=== PATIENT | male | born 1940 | race Caucasian/White ===

== ENCOUNTER → 2018-02-15 13:00 | Outpatient (REF) | payer MEDICARE, SELFPAY | LOC: LAB 13:00 | PROVIDERS: Visit Provider Nurse Practitioner Family | DX: J86.9 Pyothorax without fistula (principal) | CPT/HCPCS: 87070; 87077; 87186; 87205 ==

== ENCOUNTER → 2018-09-23 12:20 | Outpatient (CLI) | payer MEDICARE, SELFPAY ==
[2018-09-23 12:55] LABS: Basophils % 0.3 % (0.1-2.0); Eosinophils # 0.4 K/mm3 (0.0-0.4); Eosinophils % 3.8 % (0.1-12.0); Hematocrit 44.9 % (42.0-52.0); Hemoglobin 14.8 g/dL (14.1-18.0); Lymphocytes % 19.1 % (10-50); Mean Corpuscular Hemoglobin 32.1 pg (27.0-31.2); Mean Corpuscular Volume 97.2 fl (80-94); Mean Platelet Volume 7.3 fl (7.4-10.4); Monocytes # 0.4 K/mm3 (0.1-1.0); Monocytes % 4.3 % (1.7-9.3); Neutrophils # 7.4 K/mm3 (1.8-7.8); Neutrophils % 72.4 % (37.0-80.0); Platelet Count 370 K/mm3 (142-424); Red Blood Count 4.62 M/mm3 (4.60-6.20); Red Cell Distribution Width 14.7 % (11.5-17.5); White Blood Count 10.2 K/mm3 (4.8-10.8)
[2018-09-23 14:15] LABS: Erythrocyte Sedimentation Rate 14 mm/hr (0-20)
[2018-09-23 14:35] LABS: Alanine Aminotransferase 21 U/L (12-78); Albumin Level 3.4 gm/dL (3.4-5.0); Albumin/Globulin Ratio 0.9 (1.1-1.8); Alkaline Phosphatase 78 U/L (46-116); Anion Gap 14.9 mEq/L (5-15); Aspartate Amino Transferase 9 U/L (15-37); Bilirubin,Total 0.6 mg/dL (0.2-1.0); Blood Urea Nitrogen 15 mg/dL (7-18); Calcium 8.6 mg/dL (8.5-10.1); Carbon Dioxide 27 mmol/L (21.0-32.0); Chloride 103 mmol/L (98-107); Creatinine,Serum 0.85 mg/dL (0.70-1.30); Estimated Glomerular Filt Rate 87 ml/min (>60); Free T4 (Free Thyroxine) 0.82 ng/dl (0.76-1.46); GFR (African American) 105 ML/MIN (>60); Glucose 89 mg/dL (74-106); Potassium 3.9 mmoL/L (3.5-5.1); Sodium 141 mmol/L (136-145); Thyroid Stimulating Hormone 3.95 uIU/ml (0.358-3.740); Total Protein,Serum 7.4 gm/dL (6.4-8.2)
[2018-09-23 14:39] LABS: C-Reactive Protein < 0.2 mg/L (0.0-0.9)
[2018-09-24 13:11] LABS: Anti-Centromere B Antibodies <0.2 AI (0.0-0.9); Anti-Jo-1 <0.2 AI (0.0-0.9); Anti-Smith Antibody <0.2 AI (0.0-0.9); Antichromatin Antibodies <0.2 AI (0.0-0.9); Antiscleroderma-70 Antibodies 0.3 AI (0.0-0.9); RNP Antibodies <0.2 AI (0.0-0.9); Sjogren's Anti-SS-A <0.2 AI (0.0-0.9); Sjogren's Anti-SS-B <0.2 AI (0.0-0.9)
[2018-09-25 06:56] LABS: Anti-DNA (DS) Ab Qn <1 IU/mL (0-9); RA Latex Turbid. <10.0 IU/mL (0.0-13.9); Vitamin D 25 Hydroxy 43.9 ng/mL (30.0-100.0)
[2018-09-25 07:21] LABS: PTT-LA 47.6 sec (0.0-51.9); dRVVT 52.5 sec (0.0-47.0); dRVVT Mix 43.9 sec (0.0-47.0)
[2018-09-25 12:43] LABS: Lupus Reflex Interpretation Comment: (.)
[2018-09-26 08:17] LABS: Anti-Cyclic Citrullinated Pept 6 units (0-19)
== END ==
PROVIDERS: Visit Provider Nurse Practitioner Family
DX: R53.83 Other fatigue (principal); M25.50 Pain in unspecified joint; G62.9 Polyneuropathy, unspecified
CPT/HCPCS: 36415; 80053; 82652; 84439; 84443; 85025; 85613; 85651; 86140; 86200; 86225; 86235; 86431

== ENCOUNTER → 2018-10-14 11:15 | Outpatient (CLI) | payer MEDICARE, SELFPAY ==
--- NOTE | 2018-10-14 11:23 | XR_ITS ---
XR hand RT min 3V HISTORY: ITS.REASON: pain ORDERING PHYSICIAN: Jackson Robles MD PATIENT AGE: 77 years COMPARISON: None FINDINGS: No fracture or dislocation of the hand. The distal radial and ulnar fractures are noted as described in the wrist report IMPRESSION: Negative right hand
--- NOTE | 2018-10-14 11:43 | XR_ITS ---
XR wrist RT min 3V HISTORY posttraumatic pain ITS.REASON: pain ORDERING PHYSICIAN: Jackson Robles MD PATIENT AGE: 77 years Comparison: None FINDINGS: Comminuted impacted fracture present involving the distal radius transverse in nature with mild dorsal displacement and dorsal angulation of the distal fracture fragment. A splintered fragment is noted dorsally slightly displaced and dorsally angulated. There is nondisplaced fracture at the base of the ulnar styloid. IMPRESSION: Comminuted impacted distal radial fracture with mild dorsal angulation and dorsal displacement with associated nondisplaced fracture of the base of the ulnar styloid
== END ==
PROVIDERS: PCP Emergency Medicine; Visit Provider Emergency Medicine
DX: M79.601 Pain in right arm (principal)
CPT/HCPCS: 73110; 73130

== ENCOUNTER 2018-10-22 10:56 | Observation (INO) | payer MEDICARE, SELFPAY ==
[2018-10-22] VITALS (11 sets, daily range): BP systolic 113–187; BP diastolic 49–86; PULSE 75–102; RESP 16–20; TEMP 36.5–37.1; O2SAT 96–99; BMI 30.5; BMI 35.6; BMI 28.0
--- NOTE | 2018-10-22 11:06 | XR_ITS ---
XR chest portable HISTORY: Cough and congestion ITS.REASON: R/O pneumonia ORDERING PHYSICIAN: Tommy Bhakta MD PATIENT AGE: 77 years COMPARISON: 05/03/2015 FINDINGS: Normal heart size. The right hilum is prominent nonspecific and may be better evaluated with upright PA and lateral chest. No lobar consolidation or collapse. There are severe right subacromial stenosis consistent with torn right rotator cuff. IMPRESSION: No acute finding, see above for detail
--- NOTE | 2018-10-22 11:09 | HMH.EDGENADL ---
ED Disposition Clinical Impression: Chest pain Qualifiers: Chest pain type: precordial pain Qualified Code(s): R07.2 - Precordial pain Disposition: Admitted as Observation Condition on Discharge: Fair - Critical Care Critical Care Time: No Attestation: On , the high probability of a clinically significant, sudden or life threatening deterioration of the following system(s) required my full and direct attention, intervention and personal management. The time I documented below is in addition to time spent performing reported procedures but includes the following listed in this critical care notation. Medical Decision Making - [place] Inquiry Pt receiving controlled substance: No Vital Signs: 10/22/18 10:57 10/22/18 11:45 Pulse Rate [Right Brachial] 92 H 102 H Respiratory Rate 18 Blood Pressure [Right Arm] 113/62 133/49 L Blood Pressure Mean [Right Arm] 79 77 Blood Pressure Source [Right Arm] Automatic Cuff Automatic Cuff Blood Pressure Position [Right Arm] Supine Supine 02 Sat by Pulse Oximetry 98 98 Oxygen Delivery Method Room Air Room Air - Lab Data Lab Results 10/22/18 11:00: WBC 11.4 H, RBC 3.60 L, Hgb 12.0 L, Hct 36.5 L, MCV 101.4 H, MCH 33.3 H, MCHC 32.9, RDW 17.5, Plt Count 591 H, MPV 7.4, Neut % (Auto) 74.1, Lymph % (Auto) 18.1, Avery % (Auto) 4.6, Eos % (Auto) 2.9, Baso % (Auto) 0.3, Neut # (Auto) 8.5 H, Lymph # (Auto) 2.1, Avery # (Auto) 0.5, Eos # (Auto) 0.3, Baso # (Auto) 0.0 10/22/18 11:00: Sodium 140, Potassium 3.0 L, Chloride 107, Carbon Dioxide 21, Anion Gap 15.0, BUN 23 H, Creatinine 0.99, Estimated Creat Clear 77, Estimated GFR 73, Est GFR ( Amer) 88, Glucose 139 H, Calcium 8.8, Total Bilirubin 0.4, AST 12 L, ALT 36, Alkaline Phosphatase 75, Total Protein 6.6, Albumin 2.7 L, Globulin 3.9 H, Albumin/Globulin Ratio 0.7 L 10/22/18 11:00: Magnesium 1.4, Plasma/Serum Alcohol 0 10/22/18 11:00: Troponin I 0.02 10/22/18 11:00: PT 11.9 H, INR 1.15 H, APTT 29.2 Result diagrams: 10/22/18 11:00 10/22/18 11:00 Orders (Tests/Meds): ED MEDICATIONS Discontinued Medications Generic Name Dose Route Start Last Admin Trade Name Freq PRN Reason Stop Dose Admin Aspirin 324 mg 10/22/18 11:28 10/22/18 12:02 Aspirin 81mg Chewable Tablet PO 10/22/18 11:29 324 mg ONCE ONE Administration Pantoprazole Sodium 40 mg 10/22/18 21:00 Protonix 40mg Vial IV 11/21/18 20:59 BID RENARD Pantoprazole Sodium 40 mg 10/22/18 11:37 10/22/18 12:02 Protonix 40mg Vial IV 10/22/18 11:38 40 mg ONCE ONE Administration Potassium Chloride 40 meq 10/22/18 11:41 10/22/18 12:16 Klor-Con 20meq Tablet PO 10/22/18 11:42 40 meq ONCE ONE Administration Sodium Chloride 8 ml 10/22/18 11:37 10/22/18 12:11 Saline Flush 10ml Syringe IV 10/22/18 11:38 8 ml ONCE ONE Administration ORDERS Category Date Time Status Consult to Cardiology [CONS] Routine Cons 10/22/18 11:28 Active CXR --portable [XR chest portable] Stat Exams 10/22/18 11:06 Taken Troponin I Q3H Lab 10/22/18 14:30 Ordered Troponin I Q3H Lab 10/22/18 17:30 Ordered - Radiology Data #1 Image(s): Chest Image Reviewed: Yes I reviewed the patient's radiology image blunting R CPA - ECG Data Tracing #1 EKG interpreted by Tommy Bhakta MD: Rhythm: sinus Rate: 95 [place]: normal Ectopy: Premature atrial contractions Conduction: normal ST Segment Changes: none T Wave Changes: none Q Waves: none LVH with repolarization abnormality - Physician Consults Physician Consulted: DUTCH Liu, for Dr. Bower Time: 12:00 Reason -: Cardiology Eval/Care Comment/Response: They will follow. Recommend PPI. Likely stress test tomorrow. Additional Consult: Margaret Time: 12:12 Reason -: Admission Comment/Response: Agrees to admit the patient to the hospital. We discussed the patient's clinical information, including history, exam, laboratory and radiology results and ED course. Per hospital proce
[2018-10-22 11:20] LABS: Basophils % 0.3 % (0.1-2.0); Eosinophils # 0.3 K/mm3 (0.0-0.4); Eosinophils % 2.9 % (0.1-12.0); Hematocrit 36.5 % (42.0-52.0); Lymphocytes # 2.1 K/mm3 (0.7-4.5); Lymphocytes % 18.1 % (10-50); Mean Corpuscular HGB Conc 32.9 g/dL (31.8-35.4); Mean Corpuscular Hemoglobin 33.3 pg (27.0-31.2); Mean Corpuscular Volume 101.4 fl (80-94); Mean Platelet Volume 7.4 fl (7.4-10.4); Monocytes # 0.5 K/mm3 (0.1-1.0); Monocytes % 4.6 % (1.7-9.3); Neutrophils # 8.5 K/mm3 (1.8-7.8); Neutrophils % 74.1 % (37.0-80.0); Platelet Count 591 K/mm3 (142-424); Red Cell Distribution Width 17.5 % (11.5-17.5); White Blood Count 11.4 K/mm3 (4.8-10.8)
--- NOTE | 2018-10-22 11:27 | CA_ITS ---
PROCEDURE: 2-D M-mode and color Doppler study INDICATIONS FOR THE TEST: Chest pain X COPD Heart Murmur Tobacco Smoking Palpitations Fatigue SyncopeX Edema Hypertension Diabetes Mellitus Rheumatic Fever SOBXDOEXObesityXHyperlipidemia Family History HD Additional History ETOH ABUSE TDS PATIENT INFORMATION HEIGHT: 70 WEIGHT:201 GENDER: Male B/P:113/62 2-D/M-MODE INTERPRETATION: 2-D MEASUREMENTS OBSERVED VALUES IN CMS Right Ventricular Dimension (RVDd) Interventricular Septum (Thickness)(IVsd) Left Ventricular Internal Dimensions(LVIDd) Left Ventricular Posterior Wall (Thickness)(LVPWd) Aortic Root 3.9 Aortic Cusp Separation 1.0 Left Atrial Dimensions (LAD) 4.4 2D 1. Technically very difficult and poor study. 2. Left atrium is mildly enlarged, left ventricle is normal size, hyperdynamic left ventricular systolic function, visually estimated ejection fraction over 65% with no regional wall motion abnormality in the obtained views. Endocardial surfaces are very poorly visualized. 3. The right-sided chambers are not well visualized. 4. The aortic valve is thickened and calcified, leaflet mobility cannot be assessed from this study. 5. The mitral valve has mitral calcification, which extends into the anterior and posterior mitral leaflet. 6. The pulmonic valve is poorly visualized. 7. No significant pericardial effusion noted. DOPPLER INTERROGATION: Doppler interrogation of the aortic, mitral and tricuspid valve is suboptimal, there appears to be aortic stenosis present which is difficult to ascertain from this study, presence of dynamic obstruction cannot be excluded. If clinically indicated transesophageal echocardiogram is recommended for further evaluation. CONCLUSION: 1. Technically difficult and poor study because of the patient's factor and poor acoustic windows 2. Hyperdynamic left ventricular systolic function in the obtained views. Visually estimated ejection fraction over 65%. Presence of dynamic obstruction cannot be excluded 3. Thickened and calcified aortic valve, the degree of aortic valve stenosis cannot be ascertain from this study. 4. A transesophageal echocardiogram is recommended for further evaluation
[2018-10-22 11:28] LABS: Alanine Aminotransferase 36 U/L (12-78); Albumin Level 2.7 gm/dL (3.4-5.0); Albumin/Globulin Ratio 0.7 (1.1-1.8); Alkaline Phosphatase 75 U/L (46-116); Aspartate Amino Transferase 12 U/L (15-37); Bilirubin,Total 0.4 mg/dL (0.2-1.0); Blood Urea Nitrogen 23 mg/dL (7-18); Calcium 8.8 mg/dL (8.5-10.1); Carbon Dioxide 21 mmol/L (21.0-32.0); Chloride 107 mmol/L (98-107); Creatinine Clearance Estimated 77 mL/min (50-200); Creatinine,Serum 0.99 mg/dL (0.70-1.30); Estimated Glomerular Filt Rate 73 ml/min (>60); GFR (African American) 88 ML/MIN (>60); Globulin 3.9 gm/dl (1.3-3.2); Glucose 139 mg/dL (74-106); Sodium 140 mmol/L (136-145); Total Protein,Serum 6.6 gm/dL (6.4-8.2)
--- NOTE | 2018-10-22 11:30 | PC.NURSE ---
Dr. Bhakta speaking to DUTCH Liu at this time CV lab to come do echo at bedside
[2018-10-22 11:31] LABS: Ethyl Alcohol 0 mg/dL (0-99); Magnesium 1.4 mg/dL (1.4-2.2)
--- NOTE | 2018-10-22 11:35 | PC.NURSE ---
spoke with vika in echo lab
--- NOTE | 2018-10-22 11:44 | PC.NURSE ---
CV lab at bedside
--- NOTE | 2018-10-22 11:49 | PC.NURSE ---
Guille Andrews at bedside
[2018-10-22 11:53] LABS: Activated Partial Thrombo Time 29.2 seconds (23.6-34.0); INR 1.15 (0.9-1.1); Prothrombin Time 11.9 seconds (9.4-11.8)
--- NOTE | 2018-10-22 12:02 | HMH.CNCARD ---
History of Present Illness Consult date: 10/22/18 Requesting physician: Jackson Robles Consult reason: chest pain Chief complaint: chest pain Additional Medical History:: 1. Alcohol abuse, continued 2. Remote history of tobacco use for about 20 years, discontinued in patient's mid 40s 3. Family history of heart disease and a brother who is a diabetic 4. History of surgery on left leg due to spongy bone per brother 5. History of back surgery History of present illness: History obtained from patient and brother. He was upstairs on the first floor here at the hospital waiting for an appointment to get his cast changed on his right arm where he has a wrist fracture when he began complaining of blurry vision, dizziness and a presyncopal feeling, chest pain going into both arms, trouble breathing. Says that his chest pain is gone but he still has a tight feeling in his chest. Denies having this in the past and has no known heart problems. He does not have diabetes, hypertension, or hyperlipidemia. He has not smoked in 60 years. His brother of a heart attack. He is a daily drinker per prior records. However, he states that he last drank 8 or 9 days ago. Brother states that the patient took acetaminophen or ibuprofen this morning for his chronic pain, and says he takes this on a daily basis The above per Dr. Bhakta Patient is a poor and difficult historian. States he is hurting all over at this time. He states he did take 4 or 5 ibuprofen, a couple of Tylenol and sometimes this a.m. without food. States he takes ibuprofen and Tylenol several times per day every day. Cardiology consulted due to chest pain. Initial troponin is pending EKG is sinus with no acute changes Preliminary echocardiogram shows preserved ejection fraction with evidence of left ventricular hypertrophy. The patient's brother is concerned that he is no longer able to take care of him and feels that the brother is unable to take care of himself adequately at home. [facility] History *Have you ever received a pneumonia vaccine?: No *Have you received a flu vaccine this season?: No Other Surgeries: Yes: Other Amputation: No Fractures: No - *Social History Smoking Status: Never smoker Alcohol Intake: current Alcohol Intake Frequency:: 3 or more drinks per day Substance Use Type: denies use *Occupational Status:: retired Housing: house Family Hx:: No significant family history Meds Home Medications Medication Instructions Recorded Confirmed Type acetaminophen 300 mg-codeine 30 mg 1 tab PO TID PRN #15 tab 10/14/18 Rx tablet acetaminophen ER 650 mg 650 mg PO Q12H PRN 10/17/18 10/17/18 History tablet,extended release Allergies Allergy/AdvReac Type Severity Reaction Status Date / Time No Known Drug Intolerances Allergy Unknown NA Verified 10/22/18 11:02 Review of Systems - *Cardiovascular Reports chest pain, Reports shortness of breath with activity - *Respiratory Reports cough, Reports shortness of breath with activity, Denies pain with cough - *Gastrointestinal Denies abdominal pain, Denies incontinent of stools, Denies bright, red blood in stools - *Genitourinary Denies painful urination, Denies blood in urine - *Musculoskeletal Reports joint pain, Reports back pain Exam Vital signs and Labs for Last 24 Hours: Pulse Resp BP Pulse Ox 102 H 18 133/49 L 98 10/22/18 11:45 10/22/18 10:57 10/22/18 11:45 10/22/18 11:45 Laboratory Results - last 24 hr 10/22/18 11:00: WBC 11.4 H, RBC 3.60 L, Hgb 12.0 L, Hct 36.5 L, MCV 101.4 H, MCH 33.3 H, MCHC 32.9, RDW 17.5, Plt Count 591 H, MPV 7.4, Neut % (Auto) 74.1, Lymph % (Auto) 18.1, [place] % (Auto) 4.6, Eos % (Auto) 2.9, Baso % (Auto) 0.3, Neut # (Auto) 8.5 H, Lymph # (Auto) 2.1, [place] # (Auto) 0.5, Eos # (Auto) 0.3, Baso # (Auto) 0.0 10/22/18 11:00: Sodium 140, Potassium 3.0 L, Chloride 107, Carbon Dioxide 21, Anion Gap 15.0, BUN 23 H, Creatinine 0.99, Estimated Creat Cl
[2018-10-22 12:16] LABS: Troponin I 0.02 ng/ml (0.00-0.06)
--- NOTE | 2018-10-22 15:02 | HMH.PHAVTE ---
[facility] Pharmacy VTE Monitoring - Patient Demographics Admission date: 10/22/18 Report Date: 10/22/18 Time: 15:02 Allergies/Adverse Reactions: Patient Allergies No Known Drug Intolerances Allergy (Unknown, Verified 10/22/18 11:02) NA Height: 1.73 m Weight: 106.226 kg Patient Problems: Current Active Problems (Updated 10/22/18 @ 12:13 by Tommy Bhakta MD) Chest pain (Acute) Near syncope (Acute) Alcohol abuse (Acute) Hypokalemia (Acute) Anemia (Acute) - VTE Risk Labs: VTE Related Lab Results Hgb 12.0 g/dL (14.1-18.0) L 10/22/18 11:00 Hct 36.5 % (42.0-52.0) L 10/22/18 11:00 Plt Count 591 K/mm3 (142-424) H 10/22/18 11:00 PT 11.9 seconds (9.4-11.8) H 10/22/18 11:00 INR 1.15 (0.9-1.1) H 10/22/18 11:00 APTT 29.2 seconds (23.6-34.0) 10/22/18 11:00 BUN 23 mg/dL (7-18) H 10/22/18 11:00 Creatinine 0.99 mg/dL (0.70-1.30) 10/22/18 11:00 Estimated Creat Clear 77 mL/min (50-200) 10/22/18 11:00 Clinical Trial Participant: No - Prophylaxis Types of VTE Prophylaxis: TEDS Knee High
--- NOTE | 2018-10-22 15:23 | PC.NURSE ---
Pt arrived to unit at 1450. Pt is DANNY, brother left for an appointment. Pt would not answer questions, upset with blood drawing process, and cursing at staff. Pt refused for clothes to be changed into gown. Refused INDER's. Call light within reach, will continue to observe.
--- NOTE | 2018-10-22 16:02 | PC.NURSE ---
Pt states he had an alcoholic beverage in the last 8-9 days, maybe last . Denies substance abuse. Stated he fell and broke his wrist. Also stated he only takes an ibuprofren and acetaminophen daily.
[2018-10-22 16:10] LABS: Troponin I 0.02 ng/ml (0.00-0.06)
[2018-10-22 18:08] LABS: Troponin I 0.03 ng/ml (0.00-0.06)
--- NOTE | 2018-10-22 20:10 | HMH.HP ---
*Admission Date: 10/22/18 *Chief complaint: chest pain *History of present illness: this pt with chest tightness tory obtained from patient and brother. He was upstairs on the first floor here at the hospital waiting for an appointment to get his cast changed on his right arm where he has a wrist fracture when he began complaining of blurry vision, dizziness and a presyncopal feeling, chest pain going into both arms, trouble breathing. Says that his chest pain is gone but he still has a tight feeling in his chest. Denies having this in the past and has no known heart problems. He does not have diabetes, hypertension, or hyperlipidemia. He has not smoked in 60 years. His brother of a heart attack. He is a daily drinker per prior records. However, he states that he last drank 8 or 9 days ago. Brother states that the patient took acetaminophen or ibuprofen this morning for his chronic pain, and says he takes this on a daily basis. pt was seen by card and admitted for [facility] History I have reviewed the patient's past medical history: Yes *Have you ever received a pneumonia vaccine?: No *Have you received a flu vaccine this season?: No Other Surgeries: Yes: Other Amputation: No Fractures: No - *Social History Smoking Status: Never smoker Alcohol Intake: current Alcohol Intake Frequency:: 3 or more drinks per day Substance Use Type: denies use *Occupational Status:: retired Housing: house *Travel in the last 8 weeks: None - Psychiatric History Expresses thoughts of harming self/others: None Suicide Plan Description: No Plan Family Hx:: No significant family history Review of Systems - Review of Systems Review of systems:: pertinent systems reviewed and negative unless documented below - Constitutional Denies fever(s) - Eyes Denies change in vision - ENT Denies sore throat - *Cardiovascular Reports chest pain at rest, Reports shortness of breath - *Respiratory Denies cough - *Gastrointestinal Reports abdominal pain, Reports nausea, Denies black, tarry stools, Denies vomiting - *Genitourinary Denies blood in urine - *Musculoskeletal Denies joint pain - Integumentary/Breasts Denies rash - *Neurologic Denies seizure-like activity - Psychiatric Denies anxiety Meds Home Medications Medication Instructions Recorded Confirmed Type acetaminophen ER 650 mg 650 mg PO Q12H PRN 10/17/18 10/22/18 History tablet,extended release Acetaminophen with Codeine 1 tab PO TID PRN 10/22/18 10/22/18 History [Acetaminophen-Cod #2 Tablet] Allergies Allergy/AdvReac Type Severity Reaction Status Date / Time No Known Drug Intolerances Allergy Unknown NA Verified 10/22/18 11:02 Exam Vital signs and Labs for Last 24 Hours: Temp Pulse Resp BP Pulse Ox 97.7 F 80 18 117/77 99 10/22/18 15:40 10/22/18 16:00 10/22/18 15:40 10/22/18 15:40 10/22/18 15:40 Laboratory Results - last 24 hr 10/22/18 11:00: WBC 11.4 H, RBC 3.60 L, Hgb 12.0 L, Hct 36.5 L, MCV 101.4 H, MCH 33.3 H, MCHC 32.9, RDW 17.5, Plt Count 591 H, MPV 7.4, Neut % (Auto) 74.1, Lymph % (Auto) 18.1, [place] % (Auto) 4.6, Eos % (Auto) 2.9, Baso % (Auto) 0.3, Neut # (Auto) 8.5 H, Lymph # (Auto) 2.1, [place] # (Auto) 0.5, Eos # (Auto) 0.3, Baso # (Auto) 0.0 10/22/18 11:00: Sodium 140, Potassium 3.0 L, Chloride 107, Carbon Dioxide 21, Anion Gap 15.0, BUN 23 H, Creatinine 0.99, Estimated Creat Clear 77, Estimated GFR 73, Est GFR ( Amer) 88, Glucose 139 H, Calcium 8.8, Total Bilirubin 0.4, AST 12 L, ALT 36, Alkaline Phosphatase 75, Total Protein 6.6, Albumin 2.7 L, Globulin 3.9 H, Albumin/Globulin Ratio 0.7 L 10/22/18 11:00: Magnesium 1.4, Plasma/Serum Alcohol 0 10/22/18 11:00: Troponin I 0.02 10/22/18 11:00: PT 11.9 H, INR 1.15 H, APTT 29.2 10/22/18 15:30: Troponin I 0.02 10/22/18 17:20: Troponin I 0.03 I & O for Last 24 hours: Intake & Output 10/20/18 10/21/18 10/22/18 10/23/18 11:59 11:59 11:59 11:59 Intake Tota
[2018-10-23] VITALS: PULSE 90
[2018-10-23 04:00] VITALS: BP 147/67; PULSE 80; PULSE 91; RESP 18; TEMP 36.8; O2SAT 96
[2018-10-23 04:23] VITALS: BMI 40.9
--- NOTE | 2018-10-23 04:29 | PC.NURSE ---
PT HAS MOSTLY SLEPT THIS SHIFT. AT AROUND MIDNIGHT PT VERBALIZED PAIN EVERYWHERE . GIVEN PAIN MED-SEE AUG. PT REQUIRED ONE ASSIST AND USE OF HIS WALKER TO BATHROOM. PT NPO FOR STRESS TEST TODAY.
[2018-10-23 08:00] VITALS: BP 141/78; PULSE 110; PULSE 95; RESP 18; TEMP 36.6; O2SAT 95
--- NOTE | 2018-10-23 08:42 | NM_ITS ---
NM adam perf SPECT rest str CLINICAL INDICATION: ITS.REASON: chest pain ORDERING PHYSICIAN: Jackson Robles MD PATIENT AGE: 77 years COMPARISON: None DOSE: 10.68 mCi technetium Myoview intravenously at rest followed by 31.6 mCi technetium Myoview following the intravenous ministration of 0.4 mg of Lexiscan. Resting blood pressure is Resting blood pressure. Stress blood pressure Stress blood pressure. FINDINGS: Ejection fraction is calculated to be 85%. No wall motion are not detected. SPECT and polar map images reviewed. No fixed or reversible defects are evident that would indicate infarction or ischemia IMPRESSION: 1. Normal ejection fraction. 2. No fixed or reversible defects. No evidence of ischemia or infarction
--- NOTE | 2018-10-23 10:02 | HMH.PNCARD ---
Subjective Date: 10/23/18 Time: 09:20 Principal diagnosis: pre-syncope Interval history: This is a 77-year-old male who was admitted to the hospital for presyncope, dizziness and chest pain as well as shortness of breath. The patient was in the hospital waiting to get his cast change when he had sudden onset of blurry vision and dizziness. The patient felt as if he were going to pass out. He never had a syncopal episode. He did have chest pain in the center of his chest radiating to both arms as well as shortness of breath. The chest pain was a tight sensation in the center of his chest. He does not have a history of coronary artery disease. The patient is scheduled to undergo a Myoview stress test today. This morning he denies any chest pain or pressure. He states that he is still having some shortness of breath with exertion and still some dizziness as well when he is exerting himself. He denies any fever or chills. He denies any nausea, vomiting, diarrhea, PND or orthopnea. The patient's echocardiogram showed: CONCLUSION: 1. Technically difficult and poor study because of the patient's factor and poor acoustic windows 2. Hyperdynamic left ventricular systolic function in the obtained views. Visually estimated ejection fraction over 65%. Presence of dynamic obstruction cannot be excluded 3. Thickened and calcified aortic valve, the degree of aortic valve stenosis cannot be ascertain from this study. 4. A transesophageal echocardiogram is recommended for further evaluation Exam Vital signs and Labs for Last 24 Hours: Temp Pulse Resp BP Pulse Ox 97.9 F 95 H 18 141/78 H 95 10/23/18 08:00 10/23/18 08:00 10/23/18 08:00 10/23/18 08:00 10/23/18 08:00 Laboratory Results - last 24 hr 10/22/18 11:00: WBC 11.4 H, RBC 3.60 L, Hgb 12.0 L, Hct 36.5 L, MCV 101.4 H, MCH 33.3 H, MCHC 32.9, RDW 17.5, Plt Count 591 H, MPV 7.4, Neut % (Auto) 74.1, Lymph % (Auto) 18.1, [place] % (Auto) 4.6, Eos % (Auto) 2.9, Baso % (Auto) 0.3, Neut # (Auto) 8.5 H, Lymph # (Auto) 2.1, [place] # (Auto) 0.5, Eos # (Auto) 0.3, Baso # (Auto) 0.0 10/22/18 11:00: Sodium 140, Potassium 3.0 L, Chloride 107, Carbon Dioxide 21, Anion Gap 15.0, BUN 23 H, Creatinine 0.99, Estimated Creat Clear 77, Estimated GFR 73, Est GFR ( Amer) 88, Glucose 139 H, Calcium 8.8, Total Bilirubin 0.4, AST 12 L, ALT 36, Alkaline Phosphatase 75, Total Protein 6.6, Albumin 2.7 L, Globulin 3.9 H, Albumin/Globulin Ratio 0.7 L 10/22/18 11:00: Magnesium 1.4, Plasma/Serum Alcohol 0 10/22/18 11:00: Troponin I 0.02 10/22/18 11:00: PT 11.9 H, INR 1.15 H, APTT 29.2 10/22/18 15:30: Troponin I 0.02 10/22/18 17:20: Troponin I 0.03 I & O for Last 24 hours: Intake & Output 10/20/18 10/21/18 10/22/18 10/23/18 23:59 23:59 23:59 23:59 Intake Total 0 / 0 656 / 656 Balance 0 / 0 656 / 656 Weight 158 lb 231 lb 6 oz Narrative: The patient's telemetry strip shows sinus rhythm with a rate of 96. - *Routine HEENT Exam Head: Present: normocephalic, atraumatic Eye: Present: EOMI, PERRL ENT: Present: mucous membranes moist - *Routine Neck Exam Present: supple, full ROM. Absent: JVD, carotid bruit, lymphadenopathy - *Routine Respiratory Exam Present: CTA bilaterally - *Routine Cardiovascular Exam Present: RRR, Normal S1, Normal S2. Absent: murmur, gallop - *Routine Abdominal Exam Present: soft, normoactive bowel sounds. Absent: tenderness, distended - *Routine Extremities Exam Present: full ROM (Except right upper extremity which is in a cast), pulses intact, normal capillary refill. Absent: cyanosis, clubbing, edema - *Routine Skin Exam Present: intact, warm. Absent: erythema, rash - *Routine Neurological Exam Present: alert, oriented X3, CN II-XII intact. Absent: sensory deficit, motor deficit - Detailed Eye Exam Eyelids: Left normal inspection Progress Note: A&P (1) Chest pain Status: Acute Current Visit: Yes (2) Near syncope Status: Acute Current Visit
--- NOTE | 2018-10-23 10:05 | P.PN_ITS ---
Subjective Date: 10/23/18 Time: 09:20 Principal diagnosis: pre-syncope Interval history: This is a 77-year-old male who was admitted to the hospital for presyncope, dizziness and chest pain as well as shortness of breath. The patient was in the hospital waiting to get his cast change when he had sudden onset of blurry vision and dizziness. The patient felt as if he were going to pass out. He never had a syncopal episode. He did have chest pain in the center of his chest radiating to both arms as well as shortness of breath. The chest pain was a tight sensation in the center of his chest. He does not have a history of coronary artery disease. The patient is scheduled to undergo a Myoview stress test today. This morning he denies any chest pain or pressure. He states that he is still having some shortness of breath with exertion and still some dizziness as well when he is exerting himself. He denies any fever or chills. He denies any nausea, vomiting, diarrhea, PND or orthopnea. The patient's echocardiogram showed: CONCLUSION: 1. Technically difficult and poor study because of the patient's factor and poor acoustic windows 2. Hyperdynamic left ventricular systolic function in the obtained views. Visually estimated ejection fraction over 65%. Presence of dynamic obstruction cannot be excluded 3. Thickened and calcified aortic valve, the degree of aortic valve stenosis cannot be ascertain from this study. 4. A transesophageal echocardiogram is recommended for further evaluation Exam Vital signs and Labs for Last 24 Hours: Temp Pulse Resp BP Pulse Ox 97.9 F 95 H 18 141/78 H 95 10/23/18 08:00 10/23/18 08:00 10/23/18 08:00 10/23/18 08:00 10/23/18 08:00 Laboratory Results - last 24 hr 10/22/18 11:00: WBC 11.4 H, RBC 3.60 L, Hgb 12.0 L, Hct 36.5 L, MCV 101.4 H, MCH 33.3 H, MCHC 32.9, RDW 17.5, Plt Count 591 H, MPV 7.4, Neut % (Auto) 74.1, Lymph % (Auto) 18.1, [place] % (Auto) 4.6, Eos % (Auto) 2.9, Baso % (Auto) 0.3, Neut # (Auto) 8.5 H, Lymph # (Auto) 2.1, [place] # (Auto) 0.5, Eos # (Auto) 0.3, Baso # (Auto) 0.0 10/22/18 11:00: Sodium 140, Potassium 3.0 L, Chloride 107, Carbon Dioxide 21, Anion Gap 15.0, BUN 23 H, Creatinine 0.99, Estimated Creat Clear 77, Estimated GFR 73, Est GFR ( Amer) 88, Glucose 139 H, Calcium 8.8, Total Bilirubin 0.4, AST 12 L, ALT 36, Alkaline Phosphatase 75, Total Protein 6.6, Albumin 2.7 L , Globulin 3.9 H, Albumin/Globulin Ratio 0.7 L 10/22/18 11:00: Magnesium 1.4, Plasma/Serum Alcohol 0 10/22/18 11:00: Troponin I 0.02 10/22/18 11:00: PT 11.9 H, INR 1.15 H, APTT 29.2 10/22/18 15:30: Troponin I 0.02 10/22/18 17:20: Troponin I 0.03 I & O for Last 24 hours: Intake & Output 10/20/18 10/21/18 10/22/18 10/23/18 23:59 23:59 23:59 23:59 Intake Total 0 / 0 656 / 656 Balance 0 / 0 656 / 656 Weight 158 lb 231 lb 6 oz Narrative: The patient's telemetry strip shows sinus rhythm with a rate of 96. - *Routine HEENT Exam Head: Present: normocephalic, atraumatic Eye: Present: EOMI, PERRL ENT: Present: mucous membranes moist - *Routine Neck Exam Present: supple, full ROM. Absent: JVD, carotid bruit, lymphadenopathy - *Routine Respiratory Exam Present: CTA bilaterally - *Routine Cardiovascular Exam Present: RRR, Normal S1, Normal S2. Absent: murmur, gallop - *Routine Abdominal Exam Present: soft, normoactive bowel sounds. Absent: tenderness, distended - *Routine Extremities Exam Pr
--- NOTE | 2018-10-23 10:33 | HMH.PTEV ---
Physical Therapy Evaluation Rehab PT IP Evaluation Start: 10/23/18 08:43 Freq: ONCE Status: Active Protocol: Document 10/23/18 09:45 PHORNE (Rec: 10/23/18 10:33 PHORNE [id number]) Subjective/History History History 77 yowm adm to [facility] afetr pre- syncopal/ chest pain event while waiting to have the cast on his right arm changed. Subjective Subjective Pt currently reports no c/o this am. Rehab PT IP Eval Objective Appearance Patient Behavior Appropriate Patient Orientation Person,Place,Time Difficulty following instructions none Speech Pattern Clear Ambulation Patient Able to Ambulate Yes Ambulation Observation IP General Gait Pattern Observation Wide Based Gait Ambulation Distance (feet) 30 Ambulation Assistive Device Rolling Walker Balance Ability to Arise Able, w/o using arms Sitting Balance Steady, safe Standing Balance Steady, wide stance Dynamic Sitting Balance Ability Good Dynamic Standing Balance Ability Fair Transfers Bed Transfer Ability Supervision/Stand by Chair Transfer Ability Supervision/Stand by Sit to Stand Bed Transfer Ability Supervision/Stand by Sit to Stand Chair Transfer Ability Supervision/Stand by ROM All Extremities PT ROM Status WFL Abnormal ROM Comment except right UE in cast MMT All Extremities PT MMT WFL Abnormal MMT Grade except right UE NT due to cast , shld 3/5 Rehab PT IP prob,goals,plan Problems Date of Evaluation: 10/23/18 Discharge Plan PT Discharge Plan Pt appears to be at baseline for all mobility currently. Mildly impulsive with transfers and ambulation, but again this is most likely baseline activity. He reports having a ramp to enter his home and has a rolator at bedside that he normally uses for ambulation. He is appropriate to return home once medically stable. G -code Required Yes Eval Complexity Eval Charge Codes 19747 - Moderate Complexity G Codes PT Current Status Mobility PT Current Status Modifier CJ-At least 20% but less than 40% impaired, limited or restricted PT Goal Status Mobility
--- NOTE | 2018-10-23 11:03 | HMH.OTEV ---
OT Inpatient Evaluation Rehab OT IP Evaluation Start: 10/23/18 08:43 Freq: ONCE Status: Complete Protocol: Document 10/23/18 10:52 [facility] (Rec: 10/23/18 11:[address] [facility] [id number]) Rehab OT IP Assessment Subjective History Pt was oriented x 2 upon arrival. Pt agreeable to engage in therapy evaluation. Pt reports prior to being admitted to hospital he lived at home alone. Pt claims he was independent with dressing, showering and feeding. Pt also claims he was independent with all IADL's. Pt does use a rollator during transfers. Pt is a bit impulsive when asked to engage in evaluation. Subjective I can do everything Objective Upper Extremity Gross ROM Min Limitation <25% Shoulder ROM Limitations Muscle Weakness Elbow ROM Limitations Muscle Weakness Wrist Limitations of Range of Motion Muscle Weakness Bed Mobility bed mobility-scooting,bed mobility - supine/sit,bed mobility - rolling Assist Level Supervision/Stand by Transfer Training Sit/Stand Transfer Assist Level Supervision/Stand by Chair Transfer Ability Supervision/Stand by Chair Transfer Technique Sit to/from Ambulatory Chair Transfer Assistive Devices Rolling Walker Self care skills fully toilet trained,uses utensils to feed self Feeding Ability Independent Lower Body Dressing Ability Assistance X1 Upper Body Dressing Ability Standby Assistance Performing Toilet Hygiene Ability Standby Assistance Overall Commode/Toilet Transfer Ability Standby Assistance Commode/Toilet Transfer Technique Sit to/from Ambulatory decrease in endurance No Rehab OT IP prob,goals,plan Problems Date of Evaluation: 10/23/18 Other OT problems Pt appears to be at baseline Rehab Potential Rehab Potential Innapropriate for Skilled Therapy Discharge Plan OT Discharge Plan No further tx required at this time. Pt appears to be at baseline. If pt's functional ability declines therapist can re-eval at a later date. Eval Complexity Eval Charge Codes 98332 - Low Complexity G Codes G -code Required Yes OT Current Status S
[2018-10-23 11:09] VITALS: BMI 41.0
[2018-10-23 12:00] VITALS: BP 120/55; PULSE 112; RESP 20; TEMP 37.1; O2SAT 96
--- NOTE | 2018-10-23 12:15 | XR_ITS ---
XR wrist RT 2V HISTORY follow-up fracture ITS.REASON: broken ORDERING PHYSICIAN: Jackson Robles MD PATIENT AGE: 77 years Comparison: 10/14/2018 FINDINGS: A cast has been placed. No significant change in the impacted distal radial fracture with mild foreshortening and mild dorsal angulation of the distal fracture fragment. IMPRESSION: Interval cast placement otherwise no change in the impacted nondisplaced distal radial fracture
--- NOTE | 2018-10-23 13:03 | HMH.ORTHPN ---
Subjective Date: 10/23/18 Time: 12:00 Principal diagnosis: Fracture distal radius, right wrist Interval history: Patient is a 77-year-old patient seen on the floor regarding his right distal radius fracture. He sustained a right distal radius fracture when he passed out and fell at home over 2 weeks ago. I have has seen him in my office about 10 days after the injury and x-ray showed a displaced distal radius fracture along with nondisplaced fracture of the ulnar styloid process. Following detailed discussion with the patient and his brother, he opted for nonsurgical management. He is fully aware of the consequences of malunion of the fracture. He also has significant comorbidities and history of chronic alcoholism. At that time we have applied a sugar tong splint because of significant swelling of his forearm and hand. He was supposed to be following up with me in the office yesterday for application of a short arm cast. However, while waiting to be seen, he had a syncopal attack and was transferred to the ER. From the ER, he was admitted to medical services for further evaluation. Today he is still reporting significant pain around the right wrist. No history of any distal tingling or numbness. PN: Obj Ex Vital signs: Temp Pulse Resp BP Pulse Ox 97.9 F 95 H 18 141/78 H 95 10/23/18 08:00 10/23/18 08:00 10/23/18 08:00 10/23/18 08:00 10/23/18 08:00 Narrative: General appearance: alert, active, awake, no acute distress Cardiovascular: regular rate & rhythm, normal peripheral pulses Respiratory: No respiratory distress noted, speaks in full sentences ABD: soft and non tender Neuro: alert, awake, oriented x 3 Right wrist: On examination out of the splint, the skin is intact There is an mild dinner fork deformity of the distal forearm The swelling of his forearm and hand has significantly improved compared to last week; there is still some mild swelling and ecchymosis around the wrist and distal forearm Diffusely tender over the distal forearm and the wrist joint; nontender over the elbow joint Movements of the wrist and forearm are limited with pain; good range of pain-free elbow movements; good range of finger movements noted Forearm compartments are soft and nontender; no stretch pain or other signs of compartment syndrome noted Neurovascularly intact distally; capillary refill is brisk Sensation intact to light touch throughout. Progress Note: A&P (1) Chest pain Status: Acute Current Visit: Yes (2) Near syncope Status: Acute Current Visit: Yes (3) Alcohol abuse Status: Acute Current Visit: Yes (4) Distal radial fracture Status: Acute Assessment and plan: I have reviewed the clinical findings with the patient. I have again discussed the diagnosis, natural history and management options in detail. Given the fact that patient does not want any surgical intervention and has multiple comorbidities, we have decided to continue nonsurgical management. Today, as the swelling has gone down, I have recommended application of a short arm cast. He wished to proceed. A well-padded and well fitting short arm cast was applied with Ortho-Glass. Appropriate cast care instructions were given. Check x-ray right wrist was ordered after application of cast. I have encouraged patient to elevate the hand, mobilize the fingers and elbow frequently and take simple pain medication as needed. All the questions were answered and patient verbalized a good understanding. Follow-up in my office in 4 weeks time with check x-ray. Please feel free to call our office at [phone] or via the hospital wool hat sanding machine operator [phone] for any orthopaedic questions or concerns. 10/23/2018; 1745 I have reviewed the x-ray of his right wrist after application of the short arm cast. The overall alignment of the displaced distal radius fracture is unchanged from the previous imaging. As patient refused any surgical intervention, the alignm
--- NOTE | 2018-10-23 13:12 | P.PN_ITS ---
Subjective Date: 10/23/18 Time: 12:00 Principal diagnosis: Fracture distal radius, right wrist Interval history: Patient is a 77-year-old patient seen on the floor regarding his right distal radius fracture. He sustained a right distal radius fracture when he passed out and fell at home over 2 weeks ago. I have has seen him in my office about 10 days after the injury and x-ray showed a displaced distal radius fracture along with nondisplaced fracture of the ulnar styloid process. Following detailed discussion with the patient and his brother, he opted for nonsurgical management. He is fully aware of the consequences of malunion of the fracture. He also has significant comorbidities and history of chronic alcoholism. At that time we have applied a sugar tong splint because of significant swelling of his forearm and hand. He was supposed to be following up with me in the office yesterday for application of a short arm cast. However, while waiting to be seen, he had a syncopal attack and was transferred to the ER. From the ER, he was admitted to medical services for further evaluation. Today he is still reporting significant pain around the right wrist. No history of any distal tingling or numbness. PN: Obj Ex Vital signs: Temp Pulse Resp BP Pulse Ox 97.9 F 95 H 18 141/78 H 95 10/23/18 08:00 10/23/18 08:00 10/23/18 08:00 10/23/18 08:00 10/23/18 08:00 Narrative: General appearance: alert, active, awake, no acute distress Cardiovascular: regular rate & rhythm, normal peripheral pulses Respiratory: No respiratory distress noted, speaks in full sentences ABD: soft and non tender Neuro: alert, awake, oriented x 3 Right wrist: On examination out of the splint, the skin is intact There is an mild dinner fork deformity of the distal forearm The swelling of his forearm and hand has significantly improved compared to last week; there is still some mild swelling and ecchymosis around the wrist and distal forearm Diffusely tender over the distal forearm and the wrist joint; nontender over the elbow joint Movements of the wrist and forearm are limited with pain; good range of pain- free elbow movements; good range of finger movements noted Forearm compartments are soft and nontender; no stretch pain or other signs of compartment syndrome noted Neurovascularly intact distally; capillary refill is brisk Sensation intact to light touch throughout. Progress Note: A&P (1) Chest pain Status: Acute Current Visit: Yes (2) Near syncope Status: Acute Current Visit: Yes (3) Alcohol abuse Status: Acute Current Visit: Yes (4) Distal radial fracture Status: Acute Assessment and plan: I have reviewed the clinical findings with the patient. I have again discussed the diagnosis, natural history and management options in detail. Given the fact that patient does not want any surgical intervention and has multiple comorbidities, we have decided to continue nonsurgical management. Today, as the swelling has gone down, I have recommended application of a short arm cast. He wished to proceed. A well-padded and well fitting short arm cast was applied with Ortho-Glass. Appropriate cast care instructions were given. Check x-ray right wrist was ordered after application of cast. I have encouraged patient to elevate the hand, mobilize the fingers and elbow frequently and take simple pain medication as needed. All the questions were answered and patient verbalized a good understanding. Follow-up in my office in 4 weeks time with check x-ray. Please feel free to call our office at [phone]
--- NOTE | 2018-10-23 14:26 | HMH.ACPN2 ---
Internal Medicine - PN: Subj *Date: 10/24/18 *Time: 07:28 Interval history: pt with work up in progress - talked with brother who has concerns about pt living alone Exam Vital signs and Labs for Last 24 Hours: Temp Pulse Resp BP Pulse Ox 98.8 F 112 H 20 120/55 L 96 10/23/18 12:00 10/23/18 12:00 10/23/18 12:00 10/23/18 12:00 10/23/18 12:00 Laboratory Results - last 24 hr 10/22/18 15:30: Troponin I 0.02 10/22/18 17:20: Troponin I 0.03 I & O for Last 24 hours: Intake & Output 10/21/18 10/22/18 10/23/18 10/24/18 11:59 11:59 11:59 11:59 Intake Total 656 / 656 Balance 656 / 656 Weight 201 lb 231 lb 6.002 oz - Constitutional no acute distress, obese - *Routine HEENT Exam Head: Present: normocephalic Eye: Present: EOMI, PERRL ENT: Present: mucous membranes dry - *Routine Neck Exam Absent: JVD - *Routine Respiratory Exam Present: decreased breath sounds - *Routine Cardiovascular Exam Present: RRR, murmur - *Routine Abdominal Exam Present: soft - *Routine Extremities Exam Present: edema - *Routine Skin Exam Present: intact - *Routine Neurological Exam Present: alert, CN II-XII intact - Routine Psychiatric Exam Present: normal affect Assessment and Plan (1) Chest pain Current visit: Yes Status: Acute Qualifiers: Chest pain type: precordial pain Qualified Code(s): R07.2 - Precordial pain Category: Medical Code(s): R07.9 - Chest pain, unspecified (2) Near syncope Current visit: Yes Status: Acute Category: Medical Code(s): R55 - Syncope and collapse (3) Alcohol abuse Current visit: Yes Status: Acute Category: Medical Code(s): F10.10 - Alcohol abuse, uncomplicated (4) Distal radial fracture Current visit: No Status: Acute Qualifiers: Encounter type: initial encounter Fracture type: closed Fracture morphology: other intra-articular Laterality: right Qualified Code(s): S52.571A - Other intraarticular fracture of lower end of right radius, initial encounter for closed fracture Category: Medical Code(s): S52.509A - Unspecified fracture of the lower end of unspecified radius, initial encounter for closed fracture (5) Hypokalemia Current visit: Yes Status: Acute Category: Medical Code(s): E87.6 - Hypokalemia (6) Anemia Current visit: Yes Status: Acute Category: Medical Code(s): D64.9 - Anemia, unspecified (7) Obesity Current visit: Yes Status: Acute Qualifiers: Obesity type: due to excess calories Obesity classification: adult class 3 (BMI >= 40) Serious obesity comorbidity presence: with serious comorbidity Body mass index: BMI 40.0-44.9 Qualified Code(s): E66.01 - Morbid (severe) obesity due to excess calories; Z68.41 - Body mass index (BMI) 40.0-44.9, adult Category: Medical Code(s): E66.9 - Obesity, unspecified (8) Aortic stenosis Current visit: Yes Status: Acute Category: Medical Code(s): I35.0 - Nonrheumatic aortic (valve) stenosis (9) Thrombocytosis Current visit: Yes Status: Acute Category: Medical Code(s): D47.3 - Essential (hemorrhagic) thrombocythemia
--- NOTE | 2018-10-23 15:43 | PC.NURSE ---
COURTESY ROUND; PATIENT IS NPO & TRASH WAS TAKEN OUT
[2018-10-23 16:00] VITALS: BP 156/96; PULSE 80; PULSE 99; RESP 18; TEMP 36.6; O2SAT 99
--- NOTE | 2018-10-23 18:50 | PC.NURSE ---
PLACES A CAST ON PATIENTS RIGHT WRIST TODAY, REFUSED TO LET LAB DRAW BLOOD, STATES WE ARE TRYING TO KILL HIM, ASK FOR PAIN MEDICINE CONTINUOUSLY, CUSSES STAFF, RIPPED HIS IV LINE INTO PIECES, REFUSES TO WEAR HEART MONITOR, REFUSES TO WEAR HOSPITAL GOWN, PATIENT HAD A STRESS TEST TODAY AND IS TO HAVE A PAUL TOMORROW. PATIENT STATES HE DOES NOT DRINK ALCOHOL AND DOESN'T LIKE THE TASTE OF IT, BROTHER STATES DIFFERENTLY . PATIENT STATES HE DOESN'T KNOW WERE THE DOCTOR GOT THAT IDEAL. HE TOLD HIS BROTHER THAT A DOCTOR CAME TO HIS STREET IN AN OLD BLACK CAR AND HE BOUGHT PILLS FROM HIM, AND TOOK THEM. BROTHER TOLD HIM THAT WAS NOT A DOCTOR AND NOT TO DO THAT AGAIN. WILL CONTINUE TO MONITOR.
--- NOTE | 2018-10-23 19:22 | PC.NURSE ---
report given to tiff
[2018-10-23 20:00] VITALS: BP 127/76; PULSE 82; RESP 20; TEMP 36.4; O2SAT 98
[2018-10-23 20:17] LABS: Basophils % 0.1 % (0.1-2.0); Eosinophils # 0.4 K/mm3 (0.0-0.4); Eosinophils % 3.6 % (0.1-12.0); Hematocrit 29.7 % (42.0-52.0); Hemoglobin 9.9 g/dL (14.1-18.0); Lymphocytes # 1.7 K/mm3 (0.7-4.5); Lymphocytes % 15.5 % (10-50); Mean Corpuscular HGB Conc 33.3 g/dL (31.8-35.4); Mean Corpuscular Hemoglobin 33.7 pg (27.0-31.2); Mean Corpuscular Volume 101.1 fl (80-94); Mean Platelet Volume 7.8 fl (7.4-10.4); Monocytes # 0.6 K/mm3 (0.1-1.0); Monocytes % 5.1 % (1.7-9.3); Neutrophils # 8.3 K/mm3 (1.8-7.8); Neutrophils % 75.6 % (37.0-80.0); Platelet Count 372 K/mm3 (142-424); Red Blood Count 2.94 M/mm3 (4.60-6.20); Red Cell Distribution Width 18.1 % (11.5-17.5)
[2018-10-24] VITALS (20 sets, daily range): BP systolic 129–173; BP diastolic 73–95; PULSE 72–110; RESP 16–20; TEMP 36.3–36.9; O2SAT 94–99; BMI 41.1
--- NOTE | 2018-10-24 05:04 | PC.NURSE ---
PT UP ROLLING IN SEATED WALKER AT ONE POINT. PT GIVEN PAIN MED AT MD, EVENTUALLY SLEPT. NPO FOR PROCEDURE TODAY.
--- NOTE | 2018-10-24 06:29 | PC.NURSE ---
ON MAKING ROUNDS FOUND PT TO BE SITTING ON FLOOR BY BED. STATES HE GENTLY SLID OUT OF HIS ROLLING WALKER IN WHICH HE WAS SETTING ON. PT DENIED INJURY. VITALS SIGNS 98.1 P96, O2 SAT 98, B/P 175/79 R 18. THIS OCCURRED AT 0625. AT 0628 LEFT MESSAGE WITH NILSA IN ER TO REPORT TO DR. VEGAS THAT PT FOUND SITTING ON FLOOR.
--- NOTE | 2018-10-24 08:21 | P.PN_ITS ---
Subjective Date: 10/24/18 Time: 08:18 Principal diagnosis: Fracture distal radius, right wrist Interval history: 77 yo WM in chair in NAD. Wants to go home. Stress test showed no ischemia with normal LVEF. Transthoracic echo was poor quality to see valves. PAUL recommended with plans to perform today. Exam Vital signs and Labs for Last 24 Hours: Temp Pulse Resp BP Pulse Ox 98.4 F 80 18 150/75 H 98 10/24/18 04:00 10/24/18 05:21 10/24/18 04:00 10/24/18 04:00 10/24/18 04:00 Laboratory Results - last 24 hr 10/23/18 20:10: WBC 11.0 H, RBC 2.94 L, Hgb 9.9 L, Hct 29.7 L, MCV 101.1 H, MCH 33.7 H, MCHC 33.3, RDW 18.1 H, Plt Count 372 D, MPV 7.8, Neut % (Auto) 75.6, Lymph % (Auto) 15.5, [place] % (Auto) 5.1, Eos % (Auto) 3.6, Baso % (Auto) 0.1, Neut # (Auto) 8.3 H, Lymph # (Auto) 1.7, [place] # (Auto) 0.6, Eos # (Auto) 0.4, Baso # (Auto) 0.0 I & O for Last 24 hours: Intake & Output 10/21/18 10/22/18 10/23/18 10/24/18 11:59 11:59 11:59 11:59 Intake Total 656 / 656 240 / 240 Balance 656 / 656 240 / 240 Weight 201 lb 231 lb 6.002 oz 232 lb 3 oz - *Routine HEENT Exam Head: Present: normocephalic Eye: Present: EOMI, PERRL ENT: Present: mucous membranes moist - *Routine Respiratory Exam Present: CTA bilaterally. Absent: accessory muscle use, rales, rhonchi, wheezes - *Routine Cardiovascular Exam Present: RRR, murmur. Absent: gallop, rubs - *Routine Extremities Exam Absent: edema, calf tenderness - *Routine Neurological Exam Present: alert, oriented X3, moving all extremities Progress Note: A&P (1) Chest pain Status: Acute Current Visit: Yes (2) Near syncope Status: Acute Current Visit: Yes (3) Alcohol abuse Status: Acute Current Visit: Yes (4) Distal radial fracture Status: Acute Current Visit: No (5) Hypokalemia Status: Acute Current Visit: Yes (6) Anemia Status: Acute Current Visit: Yes (7) Obesity Status: Acute Current Visit: Yes (8) Aortic stenosis Status: Acute Current Visit: Yes (9) Thrombocytosis Status: Acute Current Visit: Yes Assessment and Plan for All Diagnoses:: Plan for PAUL today and then likely home this afternoon from cardiology standpoint.
--- NOTE | 2018-10-24 09:05 | HMH.ACPN2 ---
Internal Medicine - PN: Subj *Date: 10/24/18 *Time: 09:06 Interval history: 77-year-old male patient sitting up in chair denies any dizziness or chest pain. Discussed possibly being discharged to an extended care facility and patient is agreeable to this. Explained he will need a PAUL today and after evaluation, we will discuss discharge Exam Vital signs and Labs for Last 24 Hours: Temp Pulse Resp BP Pulse Ox 97.6 F 89 16 158/81 H 98 10/24/18 08:00 10/24/18 08:00 10/24/18 08:00 10/24/18 08:00 10/24/18 08:00 Laboratory Results - last 24 hr 10/23/18 20:10: WBC 11.0 H, RBC 2.94 L, Hgb 9.9 L, Hct 29.7 L, MCV 101.1 H, MCH 33.7 H, MCHC 33.3, RDW 18.1 H, Plt Count 372 D, MPV 7.8, Neut % (Auto) 75.6, Lymph % (Auto) 15.5, [place] % (Auto) 5.1, Eos % (Auto) 3.6, Baso % (Auto) 0.1, Neut # (Auto) 8.3 H, Lymph # (Auto) 1.7, [place] # (Auto) 0.6, Eos # (Auto) 0.4, Baso # (Auto) 0.0 I & O for Last 24 hours: Intake & Output 10/21/18 10/22/18 10/23/18 10/24/18 23:59 23:59 23:59 23:59 Intake Total 0 / 0 896 / 896 0 / 0 Balance 0 / 0 896 / 896 0 / 0 Weight 158 lb 231 lb 6.002 oz 232 lb 3 oz - Constitutional no acute distress - *Routine HEENT Exam Head: Present: normocephalic Eye: Present: EOMI, PERRL ENT: Present: mucous membranes moist - *Routine Neck Exam Present: full ROM. Absent: JVD - *Routine Respiratory Exam Present: diminished air movement - *Routine Cardiovascular Exam Present: murmur - *Routine Abdominal Exam Present: soft, normoactive bowel sounds. Absent: tenderness - *Routine Extremities Exam Comments: Cast intact to R arm - Routine Back/Spine/Pelvis Exam Back/Spine: Present: full ROM - *Routine Neurological Exam Present: alert, oriented X3, CN II-XII intact - Routine Psychiatric Exam Present: normal affect Assessment and Plan (1) Chest pain Current visit: Yes Status: Acute Qualifiers: Chest pain type: precordial pain Qualified Code(s): R07.2 - Precordial pain Category: Medical Code(s): R07.9 - Chest pain, unspecified (2) Near syncope Current visit: Yes Status: Acute Category: Medical Code(s): R55 - Syncope and collapse (3) Alcohol abuse Current visit: Yes Status: Acute Category: Medical Code(s): F10.10 - Alcohol abuse, uncomplicated (4) Distal radial fracture Current visit: No Status: Acute Qualifiers: Encounter type: initial encounter Fracture type: closed Fracture morphology: other intra-articular Laterality: right Qualified Code(s): S52.571A - Other intraarticular fracture of lower end of right radius, initial encounter for closed fracture Category: Medical Code(s): S52.509A - Unspecified fracture of the lower end of unspecified radius, initial encounter for closed fracture (5) Hypokalemia Current visit: Yes Status: Acute Category: Medical Code(s): E87.6 - Hypokalemia (6) Anemia Current visit: Yes Status: Acute Category: Medical Code(s): D64.9 - Anemia, unspecified (7) Obesity Current visit: Yes Status: Acute Qualifiers: Obesity type: due to excess calories Obesity classification: adult class 3 (BMI >= 40) Serious obesity comorbidity presence: with serious comorbidity Body mass index: BMI 40.0-44.9 Qualified Code(s): E66.01 - Morbid (severe) obesity due to excess calories; Z68.41 - Body mass index (BMI) 40.0-44.9, adult Category: Medical Code(s): E66.9 - Obesity, unspecified (8) Aortic stenosis Current visit: Yes Status: Acute Category: Medical Code(s): I35.0 - Nonrheumatic aortic (valve) stenosis (9) Thrombocytosis Current visit: Yes Status: Acute Category: Medical Code(s): D47.3 - Essential (hemorrhagic) thrombocythemia - Assessment and plan all Dx Assessment and Plan for all problems:: Rounds per Dr. Robles all orders per Dr. Robles The patient's infection will respond to the chosen ABx?: Yes Is the patient receiving the right d
--- NOTE | 2018-10-24 10:49 | SW/DCPLANNER ---
Addendum entered by Amalia Barger 10/24/18 16:15: [facility] has refused this patient at this time due to being on the sex offenders list and within [address] of school. I will continue to follow up with Celestina from [place]. I have also spoke with patients brother (Jaylan) whom is patients POA and very involved. Addendum entered by Amalia Barger 10/24/18 11:55: Patient information has been faxed to [facility] as well. Original Note: I have spoke with this patient regarding discharge plans. Patient stated that he is currently living in his apartment alone with assistance from his brother who also lives in [place]. At first this patient stated his plan is to return home and at the first of next month go to a residential. I did explain to this patient that the process could be easier if he would allow me to assist at discharge from [facility]. Patient stated that he would be willing to agree with this at this time. Patient has stated that he would be willing to go anywhere but only in [place]. Ruby from [facility] has stated that they do have beds available at this time. Patient information has been faxed to [facility]. I will also follow up with [facility] today. Patient will need a senior care Medicaid pending bed.
[2018-10-24 10:50] LABS: Folate 18.4 ng/mL (>3.0); Vitamin B12 >2000 pg/mL (232-1245)
--- NOTE | 2018-10-24 13:21 | P.PN_ITS ---
[facility] Anesthesia Checklist - Structural Data Admitted From: Inpatient Planned Operative Procedure/s: nathalia Consent for Planned Operative Procedure(s) Verified: Yes - Airway Assessment C-Spine Mobility Assessed: Yes TMJ Mobility Assessed: Yes Dentition: Poor Dentition - Neurological Assessment Level of Consciousness: Awake, Alert, Combative - Anesthesia Plan Anesthesia Risk discussed: Yes Anesthesia Plan: Verified ASA Class: III Anesthesia Type: MAC [facility] History I have reviewed the patient's past medical history: Yes *Have you ever received a pneumonia vaccine?: No *Have you received a flu vaccine this season?: No Other Surgeries: Yes: Other Amputation: No Fractures: No - *Social History Smoking Status: Never smoker Alcohol Intake: current Alcohol Intake Frequency:: 3 or more drinks per day Substance Use Type: denies use *Occupational Status:: retired Housing: house *Travel in the last 8 weeks: None - Psychiatric History Expresses thoughts of harming self/others: None Suicide Plan Description: No Plan Family Hx:: No significant family history
--- NOTE | 2018-10-24 15:06 | CA_ITS ---
PROCEDURE: Transesophageal echocardiogram INDICATIONS FOR THE TEST: Aortic stenosis mitral regurgitation presyncope Procedure: Patient was brought in cardiac catheter lab holding area and hemodynamically stable condition, after the informed consent, conscious sedation was provided by anesthesiologist, local anesthesia was applied, and transesophageal echocardiography was performed without any difficulty. Patient tolerated the procedure well. Findings: 1. Left atrium is mildly enlarged, left atrial appendage is free of thrombus, there is adequate appendage flow by spectral Doppler. 2. The right atrium is mildly enlarged. 3. The intra-atrial septum is intact, there is no flow across the intra-atrial septum, agitated saline contrast study fails to identify intracardiac shunt. 4. The aortic valve is thickened and calcified leaflet continue to display mobility, morphologically there is mild aortic stenosis. There is no aortic insufficiency. 5. The mitral valve has mitral calcification, there is no mitral stenosis, there is mild systolic anterior motion of the mitral valve leaflets seen. There is no significant mitral stenosis, there is mild mitral regurgitation. 6. The tricuspid valve is grossly normal. 7. The pulmonic valve is grossly normal. 8. No significant pericardial effusion noted. 9. The left ventricle is normal size, there is mild asymmetrical basal septal hypertrophy, there is increased Doppler blood flow seen in the left ventricular outflow track by color flow mapping. 10. The right ventricle is normal size and contractility. 11. No significant pericardial effusion noted. 12. Ascending, arch and descending thoracic aorta there is no aneurysm or dissection, nonmobile by atheromatous plaque seen in the descending thoracic aorta. Conclusions: 1. Biatrial enlargement, left atrial appendage is free of thrombus, there is good appendage flow by spectral Doppler. 2. Thickened and calcified aortic valve without significant aortic stenosis aortic insufficiency. 3. Normal left ventricular size, asymmetrical basal septal hypertrophy, visually estimated ejection fraction of 55% with no regional wall motion abnormality. 4. Mild systolic anterior motion of the mitral valve leaflets seen, there is increased turbulence flow seen in the left ventricular outflow tract by color flow mapping. 5. Mild mitral and tricuspid regurgitation 6. Agitated saline contrast study fails to identify intracardiac shunt. 7. No significant pericardial effusion noted 8. Nonmobile atheromatous plaque seen in the descending thoracic aorta.
--- NOTE | 2018-10-24 18:11 | PC.NURSE ---
PATIENT HAD A PAUL TODAY AND TOLERATED WELL, SLEPT UNTIL 1700, PATIENT UP TO CHAIR NOW TALKING ON THE PHONE, COMPLAINS OF CONSTANT PAIN STATES IT IS ALL OVER AND RATES IT AT A 11. WILL CONTINUE TO MONITOR.
[2018-10-25 01:00] VITALS: PULSE 90
[2018-10-25 04:00] VITALS: BP 106/59; PULSE 100; PULSE 96; RESP 20; TEMP 36.4; O2SAT 98; BMI 38.0
--- NOTE | 2018-10-25 04:59 | PC.NURSE ---
PT IN HALLWAY ON HIS SEATED WALKER. STATING HE WANTS TO LEAVE HERE. WHEN I ATTEMPTED TO TALK TO HIM HE RAN OVER MY FOOT AND CURSED AT ME. PT HAS IV TO SALINE LOCK IN SINCE HE REFUSES IV FLUIDS. CHARGE NURSE ALSO EXPLAINING THINGS TO HIM. HE CONTINUES TO BE VERY LOUD AND HE IS REFUSING TO GO BACK INTO HIS ROOM. YOUTH SUPPORT WORKER NOTIFIED AND HERE TO TALK TO PT. I NOTIFIED PT'S BROTHER/ALYSON ANTOINE. HE STATED HE WILL BE COMING LATER THIS MORNING BUT CAN'T COME RIGHT NOW. I TOLD PATIENT WHAT HIS BROTHER SAID AND HE WANTED TO TALK TO HIM. CALL MADE AGAIN TO BROTHER AND PT TALKED TO HIM, VERY UPSET THAT HE HASN'T GOTTEN TO LEAVE YET. PT DID NOT MAKE ANY PROGRESS WITH HIS BROTHER. YOUTH SUPPORT WORKER TOLD HIM HE NEEDED TO GO BACK TO HIS ROOM, STATED HE WAS GOING TO STAY RIGHT WHERE HE WAS UNTIL DR. VEGAS COMES TO RELEASE HIM. PT ALERT AND ORIENTED X3, HE WAS ABLE TO ACCURATE ANSWER ORIENTATION QUESTIONS CORRECTLY IN FRONT OF MYSELF, CHARGE NURSE AND YOUTH SUPPORT WORKER. PT WAS INFORMED THAT WE MAY CONTACT LAW ENFORCEMENT IF HE DOESN'T COOPERATE. YOUTH SUPPORT WORKER DID SPEAK WITH DR. VEGAS. HE SAID TO TRY TO IGNORE HIS ACTIONS IF POSSIBLE, NOT TO FEED INTO IT AND HE WOULD BE UP THIS MORNING TO DISCHARGE HIM AND HE CAN GET FILE KEEPER INVOLVED TO GET HIM PLACEMENT AND/OR RIDE HOME. BUT IF HE REFUSES TO WAIT, THEN HE WILL NEED TO SIGN AMA. PT STAYED IN HALLWAY FOR SOMETIME, THEN SLOWLY MADE HIS WAY BACK TO HIS ROOM. SO, OF THIS TIME, PT IS IN HIS BED. RESPIRATIONS EVEN AND UNLABORED, NO DISTRESS NOTED. NO COMPLAINTS OF PAIN REPORTED. PT STABLE. WILL CONTINUE TO MONITOR. REPORT TO BE GIVEN TO ONCOMING NURSE.
[2018-10-25 08:00] VITALS: BP 164/92; PULSE 98; RESP 18; TEMP 36.4; O2SAT 97
--- NOTE | 2018-10-25 10:11 | SW/DCPLANNER ---
At this time patient has been refused by: [facility], and [facility] due to being a registered sex offender. [facility] (no [facility] beds), [facility] (no [facility] beds). Patient information has been faxed to [facility] and if refusal from this facility patient will discharge home. Brother has been involved with discharge plans as well. I will update Dr Robles once I hear back from [facility].
[2018-10-25 12:00] VITALS: BP 172/79; PULSE 87; RESP 20; TEMP 37; O2SAT 97
--- NOTE | 2018-10-25 15:23 | HMH.DCSUM ---
General - General Admission date:: 10/22/18 Discharge date: 10/25/18 HPI HPI: this pt with chest tightness tory obtained from patient and brother. He was upstairs on the first floor here at the hospital waiting for an appointment to get his cast changed on his right arm where he has a wrist fracture when he began complaining of blurry vision, dizziness and a presyncopal feeling, chest pain going into both arms, trouble breathing. Says that his chest pain is gone but he still has a tight feeling in his chest. Denies having this in the past and has no known heart problems. He does not have diabetes, hypertension, or hyperlipidemia. He has not smoked in 60 years. His brother of a heart attack. He is a daily drinker per prior records. However, he states that he last drank 8 or 9 days ago. Brother states that the patient took acetaminophen or ibuprofen this morning for his chronic pain, and says he takes this on a daily basis. pt was seen by card and admitted for evpr Hospital Course Hospital Course: echo:DOPPLER INTERROGATION: Doppler interrogation of the aortic, mitral and tricuspid valve is suboptimal, there appears to be aortic stenosis present which is difficult to ascertain from this study, presence of dynamic obstruction cannot be excluded. If clinically indicated transesophageal echocardiogram is recommended for further evaluation. CONCLUSION: 1. Technically difficult and poor study because of the patient's factor and poor acoustic windows 2. Hyperdynamic left ventricular systolic function in the obtained views. Visually estimated ejection fraction over 65%. Presence of dynamic obstruction cannot be excluded 3. Thickened and calcified aortic valve, the degree of aortic valve stenosis cannot be ascertain from this study. stress test: IMPRESSION: 1. Normal ejection fraction. 2. No fixed or reversible defects. No evidence of ischemia or infarction APUL:Conclusions: 1. Biatrial enlargement, left atrial appendage is free of thrombus, there is good appendage flow by spectral Doppler. 2. Thickened and calcified aortic valve without significant aortic stenosis aortic insufficiency. 3. Normal left ventricular size, asymmetrical basal septal hypertrophy, visually estimated ejection fraction of 55% with no regional wall motion abnormality. 4. Mild systolic anterior motion of the mitral valve leaflets seen, there is increased turbulence flow seen in the left ventricular outflow tract by color flow mapping. 5. Mild mitral and tricuspid regurgitation 6. Agitated saline contrast study fails to identify intracardiac shunt. 7. No significant pericardial effusion noted 8. Nonmobile atheromatous plaque seen in the descending thoracic aorta. will dc home with close monitoring as out pt, have tried for placement but was denied to to criminal hx. pt wants to go home. Objective Vital signs: Temp Pulse Resp BP Pulse Ox 98.6 F 87 20 172/79 H 97 10/25/18 12:00 10/25/18 12:00 10/25/18 12:00 10/25/18 12:00 10/25/18 12:00 no acute distress - *Routine HEENT Exam Head: Present: normocephalic Eye: Present: PERRL ENT: Present: mucous membranes moist - *Routine Respiratory Exam Present: CTA bilaterally - *Routine Cardiovascular Exam Present: murmur - *Routine Abdominal Exam Present: soft, normoactive bowel sounds - *Routine Extremities Exam Present: full ROM - *Routine Skin Exam Present: intact - *Routine Neurological Exam Present: alert, oriented X3 - Routine Psychiatric Exam Present: normal affect Results - Additional Comments rounded with vadim all orders per vadim dc home with brother DS: Diagnosis - Discharge Diagnosis (1) Chest pain Status: Acute (2) Near syncope Status: Acute (3) Alcohol abuse Status: Acute (4) Distal radial fracture Status: Acute (5) Hypokalemia Status: Acute (6) Anemia Status: Acute (7) Obesity Status: Acute (8
--- NOTE | 2018-10-25 15:37 | SW/DCPLANNER ---
Addendum entered by Amalia Barger 10/30/18 10:01: I have spoke with Nova from [facility] and has stated that services will begin today for this patient. Original Note: This patient has been refused by [facility] due to behaviors this morning at [facility]. I have informed patients brother...brother understands and is willing to take this patient back home. Patient will discharge home to his house own house today. All facilities contacted has refused this patient. I will contact home health agencies on Sunday if home health services are ordered.
== END 2018-10-25 16:45 | disposition home or self-care (01) ==
LOC: ER 12:13 → 2ND 12:26
PROVIDERS: Internal Medicine Cardiovascular Disease; Admitting Provider Emergency Medicine; Emergency Provider Emergency Medicine; Visit Provider Emergency Medicine
DX: R07.2 Precordial pain (principal); R55 Syncope and collapse; G89.29 Other chronic pain; F10.10 Alcohol abuse, uncomplicated; D64.9 Anemia, unspecified; S52.501D Unspecified fracture of the lower end of right radius, subsequent encounter for closed fracture with routine healing; E87.6 Hypokalemia; Z83.3 Family history of diabetes mellitus; Z79.899 Other long term (current) drug therapy; Z82.49 Family history of ischemic heart disease and other diseases of the circulatory system; Z87.891 Personal history of nicotine dependence; E66.9 Obesity, unspecified; Z68.38 Body mass index [BMI] 38.0-38.9, adult; I35.0 Nonrheumatic aortic (valve) stenosis; D47.3 Essential (hemorrhagic) thrombocythemia
CPT/HCPCS: 36415; 71045; 73100; 78452; 80053; 82607; 82746; 83735; 84484; 85025; 85610; 85730; 93005; 93017; 93306; 93312; 96365; 96374; 97162; 97165; 99152; 99284; A9502; G0378; J2785

== ENCOUNTER 2018-10-30 12:31 | Inpatient (IN) ==
--- NOTE | 2018-10-30 12:46 | Emergency Department Note ---
ED Disposition Clinical Impression: Upper GI bleed, Elevated troponin Acute renal failure Qualifiers: Acute renal failure type: unspecified Qualified Code(s): N17.9 - Acute kidney failure, unspecified Disposition: Admitted As Inpatient Condition on Discharge: Fair - Critical Care Critical Care Time: Yes Attestation: On 10/30/18, the high probability of a clinically significant, sudden or life threatening deterioration of the following system(s) required my full and direct attention, intervention and personal management. The time I documented below is in addition to time spent performing reported procedures but includes the following listed in this critical care notation. Total Critical Care Time: 30 Vital system(s) involved:: Renal Failure My critical care processes included: Assessment & monitoring of V/S, Initial and Re-exams, Data Review/Interpretation, Coordinating Care, Medication Orders and management, Documentation Medical Decision Making - [place] Inquiry Pt receiving controlled substance: No Vital Signs: 10/30/18 12:31 10/30/18 12:34 10/30/18 13:02 Temperature 97.9 F Temperature Source Temporal Artery Scan Pulse Rate [Right Brachial] 103 H 102 H 95 H Respiratory Rate 16 Blood Pressure [Right Arm] 105/64 L 132/40 L 107/72 L Blood Pressure Mean [Right Arm] 77 70 83 Blood Pressure Source [Right Arm] Automatic Cuff Blood Pressure Position [Right Arm] Sitting 02 Sat by Pulse Oximetry 98 98 97 Oxygen Delivery Method Room Air 10/30/18 13:30 Temperature Temperature Source Pulse Rate [Right Brachial] 95 H Respiratory Rate Blood Pressure [Right Arm] 126/86 Blood Pressure Mean [Right Arm] 99 Blood Pressure Source [Right Arm] Blood Pressure Position [Right Arm] 02 Sat by Pulse Oximetry 99 Oxygen Delivery Method - Lab Data Lab Results 10/30/18 12:45: WBC 13.8 H, RBC 3.73 L, Hgb 12.3 L, Hct 38.2 L, MCV 102.4 H, MCH 33.0 H, MCHC 32.2, RDW 18.4 H, Plt Count 644 H, MPV 7.7, Neut % (Auto) 88.9 H, Lymph % (Auto) 8.2 L, [place] % (Auto) 1.7, Eos % (Auto) 0.8, Baso % (Auto) 0.4, Neut # (Auto) 12.3 H, Lymph # (Auto) 1.1, [place] # (Auto) 0.2, Eos # (Auto) 0.1, Baso # (Auto) 0.1, Total Counted 100, Neutrophils % (Manual) 91 H, Band Neutrophils % 1.0, Lymphocytes % (Manual) 7 L, Monocytes % (Manual) 1 L, Platelet Estimate Moderate increase, Macrocytosis 2+ 10/30/18 12:45: PT 18.8 H, INR 1.86 H, APTT 32.4 10/30/18 12:45: Sodium 141, Potassium 3.6, Chloride 102, Carbon Dioxide 12 L, Anion Gap 30.6 H, BUN 21 H, Creatinine 2.91 H, Estimated Creat Clear 28, Estimated GFR 21 L, Est GFR ( Amer) 25 L, Glucose 130 H, Calcium 10.2 H, Total Bilirubin 0.5, AST 233 H, Alkaline Phosphatase 106, Troponin I 0.21 H, Total Protein 6.5, Albumin 2.8 L, Globulin 3.7 H, Albumin/Globulin Ratio 0.8 L, Acetaminophen 38.6 H, Plasma/Serum Alcohol 0 10/30/18 12:45: Lactate 2.5 H 10/30/18 12:45: Phosphorus 5.9 H, Magnesium 1.7 10/30/18 12:50: Stool Occult Blood Positive A Result diagrams: 10/30/18 12:45 10/30/18 12:45 Orders (Tests/Meds): ED MEDICATIONS Generic Name Dose Route Start Last Admin Trade Name Freq PRN Reason Stop Dose Admin Sodium Chloride 1,000 mls @ 150 mls/hr 10/30/18 13:45 10/30/18 13:38 Sod Chlor 0.9% 1000ml Bag IV 11/29/18 13:44 150 mls/hr .[id number] RENARD Administration Discontinued Medications Generic Name Dose Route Start Last Admin Trade Name Freq PRN Reason Stop Dose Admin Morphine Sulfate 2 mg 10/30/18 13:45 10/30/18 13:46 Morphine 2mg/Ml Syringe IV 10/30/18 13:46 2 mg ONCE ONE Administration Morphine Sulfate 2 mg 10/30/18 13:57 10/30/18 14:01 Morphine 2mg/Ml Syringe IV 10/30/18 13:58 2 mg ONCE ONE Administration Ondansetron HCl 4 mg 10/30/18 13:45 10/30/18 13:46 Zofran 4mg/2ml Vial IV 10/30/18 13:46 4 mg ONCE ONE Administration Pantoprazole Sodium 40 mg 10/30/18 13:30 10/30/18 13:38 Protonix 40mg Vial IV 10/30/18 13:31 40 mg ONCE ONE Administration Sodium Chloride 8 ml 10/30/18 13:30 10/30/18 13:38 Saline Flush 10ml Syringe IV 10/30/18 13:31 8 ml ONCE ONE Administration ORDERS Category Date Time Status XR chest portable Stat Exams 10/30/18 12:56 Taken Acetaminophen Stat Lab 10/30/18 12:45 Results Comprehensive Metabolic Panel Stat Lab 10/30/18 12:45 Results Ethyl Alcohol Stat Lab 10/30/18 12:45 Results Troponin I Stat Lab 10/30/18 12:45 Results - ECG Data Tracing #1 EKG interpreted by Tommy Bhakta MD: Rhythm: sinus Rate: 94 [place]: normal Ectopy: none Conduction: normal ST Segment Changes: none T Wave Changes: none Q Waves: none No evidence of acute ischemia or injury LVH Prior electrocardiagrams reviewed. No change from prior tracings. - Physician Consults Physician Consulted: Margaret Time: 13:35 Reason -: Admission Comment/Response: Agrees to admit the patient to the hospital. We discussed the patient's clinical information, including history, exam, laboratory and radiology results and ED course. Per hospital procedure, I will write temporary bridge inpatient orders on the patient. Specific orders requested by the admit [facility] physician: Consults to Dr. Bower and surgeon fireperson. Discussed history of alcohol abuse. No issues with withdrawal on last admission and he does not feel patient needs to be on withdrawal protocol. Additional Consult: Tunde Time: 13:46 Reason -: Surgical Eval/Care Comment/Response: Will consult Additional Consult: DUTCH Liu, for Dr. Bower Time: 13:46 Reason -: Cardiology Eval/Care Comment/Response: Will consult Medical Decision Narrative: Review of recent admission shows that the patient had cardiology consultation, echocardiogram, PAUL, stress test while an inpatient. Work-up was unremarkable. Attempt was made to obtain custodial placement, but the patient was denied due to his criminal history. General Adult HPI - General Chief complaint: Nausea/Vomiting/Diarrhea Stated complaint: vomiting Time Seen by Provider: 10/30/18 12:45 Mode of Arrival: Family Vehicle Limitations: No Limitations Description of Symptoms (Recalled from ER Triage Doc. by RN): shortness of air and vomiting - History of Present Illness HPI narrative: The patient is poor historian. History obtained from patient and brother. Patient was admitted here on 10/22/2018. Seen by me in this emergency department. He had a near syncopal episode and chest pain. Discharged from the hospital on Sunday 5 days ago. His brother says that "he started feeling bad again". He was supposed to see Dr. Robles in the office for follow-up yesterday afternoon, but said that he could not go because he felt too bad. He was also supposed to see Dr. Bower in the office this afternoon. However, stated he was feeling bad and therefore brother was going to bring him to the emergency room. On the way here he vomited in brother's truck and brother believes there was blood in it. The patient denies any bloody stools or melanotic stools. Denies abdominal pain. The patient says he hurts all over from his neuropathy, this is a chronic compla int. He has not been eating or drinking well. He has a history of daily alcohol consumption in the past. Initially said that he had some alcohol drink over the weekend, but is now denying it. Brother had noted on his previous emergency department visit that the patient takes daily ibuprofen and acetaminophen due to his chronic neuropathy pain. - Related Data Home Medications Medication Instructions Recorded Confirmed Acetaminophen with Codeine 1 tab PO Q6H 10/30/18 10/30/18 [Acetaminophen w/Codeine #3 Tablet] Allergies Allergy/AdvReac Type Severity Reaction Status Date / Time No Known Drug Intolerances Allergy Unknown NA Verified 10/22/18 11:02 [facility] History - Hepatitis A Screen Drug use history?: No High risk sexual behaviors?: No History of sexually transmitted infection?: No Currently employed?: No Childcare worker?: No Do you have indoor plumbing?: Yes Do you have electricity?: Yes Attestation statement:: This patient has been screened for Hepatitis A risk factors. I have reviewed the patient's past medical history: Yes Comment: neuropathy Other Surgeries: Yes: Other Amputation: No Fractures: No Comment: leg,eye, hand - Social History Educational Level: Completed High School Smoking Status: Unknown if ever smoked Alcohol Intake: former Alcohol Intake Frequency:: 0-2 drinks per day Substance Use Type: denies use Occupational Status: retired Housing: house - Psychiatric History Expresses thoughts of harming self/others: None Suicide Plan Description: No Plan Family Hx:: No significant family history ROS Obtained: Yes All systems reviewed & no additional complaints - Constitutional Constitutional: Denies fever(s), Reports weakness - Cardiovascular Cardiovascular: Denies chest pain - Respiratory Respiratory: No dyspnea - Gastrointestinal Gastrointestingal: Reports: nausea, vomiting. Denies: abdominal pain, bright red blood in stools, black, tarry stools - Musculoskeletal Musculoskeletal: Reports as per HPI Physical Exam - General General appearance: alert, in no apparent distress - Head Head exam: atraumatic, normocephalic - Eye Eye exam: Present: normal appearance, EOMI, other (Pale conjunctiva) - ENT ENT exam: Present: mucous membranes moist - Neck Neck exam: Present: normal inspection, trachea midline - Chest Chest inspection: Present: normal inspection, symmetric chest wall rise - Respiratory Respiratory exam: Present: normal lung sounds bilaterally - Cardiovascular Cardiovascular exam: Present: regular rate, normal rhythm, normal heart sounds - Abdominal Exam Abdominal exam: Present: soft. Absent: distention, tenderness, guarding, rebound - Rectal Exam Rectal exam: Present: bloody stool. Absent: fecal impaction, mass - Extremities Exam Extremities exam: Present: other (Short arm cast right upper extremity) - Neurological Exam Neurological exam: Present: alert, CN II-XII intact. Absent: motor sensory deficit - Psychiatric Psychiatric exam: Present: anxious - Skin Skin exam: Present: warm, dry, pallor
[2018-10-30 13:04] LABS: Basophils # 0.1 K/mm3 (0-0.2); Basophils % 0.4 % (0.1-2.0); Eosinophils # 0.1 K/mm3 (0.0-0.4); Eosinophils % 0.8 % (0.1-12.0); Hematocrit 38.2 % (42.0-52.0); Hemoglobin 12.3 g/dL (14.1-18.0); Lymphocytes # 1.1 K/mm3 (0.7-4.5); Lymphocytes % 8.2 % (10-50); Mean Corpuscular HGB Conc 32.2 g/dL (31.8-35.4); Mean Corpuscular Volume 102.4 fl (80-94); Mean Platelet Volume 7.7 fl (7.4-10.4); Monocytes # 0.2 K/mm3 (0.1-1.0); Monocytes % 1.7 % (1.7-9.3); Neutrophils # 12.3 K/mm3 (1.8-7.8); Neutrophils % 88.9 % (37.0-80.0); Platelet Count 644 K/mm3 (142-424); Red Blood Count 3.73 M/mm3 (4.60-6.20); Red Cell Distribution Width 18.4 % (11.5-17.5); White Blood Count 13.8 K/mm3 (4.8-10.8)
[2018-10-30 13:10] LABS: Activated Partial Thrombo Time 32.4 seconds (23.6-34.0); INR 1.86 (0.9-1.1); Prothrombin Time 18.8 seconds (9.4-11.8)
[2018-10-30 13:11] LABS: Phosphorous 5.9 mg/dL (2.4-4.9)
[2018-10-30 13:23] LABS: Acetaminophen 38.6 ug/mL (10-30); Albumin Level 2.8 gm/dL (3.4-5.0); Albumin/Globulin Ratio 0.8 (1.1-1.8); Anion Gap 30.6 mEq/L (5-15); Bilirubin,Total 0.5 mg/dL (0.2-1.0); Calcium 10.2 mg/dL (8.5-10.1); Globulin 3.7 gm/dl (1.3-3.2); Potassium 3.6 mmoL/L (3.5-5.1); Total Protein,Serum 6.5 gm/dL (6.4-8.2)
[2018-10-30 13:32] LABS: Lymphocytes % 7 % (10-50); Macrocytosis 2+; Monocytes % 1 % (2-9); Neutrophils % 91 % (42-76); Total Cells Counted 100
--- NOTE | 2018-10-30 14:17 | Consult Report ---
History of Present Illness Consult date: 10/30/18 Requesting physician: Jackson Robles Chief complaint: Malaise, UGI bleed Additional Medical History:: 1. Alcohol abuse, continued 2. Remote history of tobacco use for about 20 years, discontinued in patient's mid 40s 3. Family history of heart disease and a brother who is a diabetic 4. History of surgery on left leg due to "spongy bone" per brother 5. History of back surgery with chronic pain 6. Aortic sclerosis without stenosis A. Echo, 10/2018, 1. Technically difficult and poor study because of the patient's factor and poor acoustic windows 2. Hyperdynamic left ventricular systolic function in the obtained views. Visually estimated ejection fraction over 65%. Presence of dynamic obstruction cannot be excluded 3. Thickened and calcified aortic valve, the degree of aortic valve stenosis cannot be ascertain from this study. 4. A transesophageal echocardiogram is recommended for further evaluation B. PAUL, 10/2018, 1. Biatrial enlargement, left atrial appendage is free of thrombus, there is good appendage flow by spectral Doppler. 2. Thickened and calcified aortic valve without significant aortic stenosis aortic insufficiency. 3. Normal left ventricular size, asymmetrical basal septal hypertrophy, visually estimated ejection fraction of 55% with no regional wall motion abnormality. 4. Mild systolic anterior motion of the mitral valve leaflets seen, there is increased turbulence flow seen in the left ventricular outflow tract by color flow mapping. 5. Mild mitral and tricuspid regurgitation 6. Agitated saline contrast study fails to identify intracardiac shunt. 7. No significant pericardial effusion noted 8. Nonmobile atheromatous plaque seen in the descending thoracic aorta 7. Chest pain A. Shan myoview, 10/2018, 1. Normal ejection fraction. 2. No fixed or reversible defects. No evidence of ischemia or infarction History of present illness: The patient is poor historian. History obtained from patient and brother. Patient was admitted here on 10/22/2018. Seen by me in this emergency department. He had a near syncopal episode and chest pain. Discharged from the hospital on Sunday 5 days ago. His brother says that "he started feeling bad again". He was supposed to see Dr. Robles in the office for follow-up yesterday afternoon, but said that he could not go because he felt too bad. He was also supposed to see Dr. Bower in the office this afternoon. However, stated he was feeling bad and therefore brother was going to bring him to the emergency room. On the way here he vomited in brother's truck and brother believes there was blood in it. The patient denies any bloody stools or melanotic stools. Denies abdominal pain. The patient says he hurts all over from his neuropathy, this is a chronic complaint. He has not been eating or drinking well. He has a history of daily alcohol consumption in the past. Initially said that he had some alcohol drink over the weekend, but is now denying it. Brother had noted on his previous emergency department visit that the patient takes daily ibuprofen and acetaminophen due to his chronic neuropathy pain. The above per Dr. Bhakta Cardiology consulted for elevated troponin. Pt is poor historian as noted above. Complains that he hurts all over. EKG is sinus with LVH by voltage. No acute changes noted. [facility] History *Have you ever received a pneumonia vaccine?: No *Have you received a flu vaccine this season?: No Other Surgeries: Yes: Other Amputation: No Fractures: No - *Social History Educational Level: Completed High School Smoking Status: Unknown if ever smoked Alcohol Intake: former Alcohol Intake Frequency:: 0-2 drinks per day Substance Use Type: denies use *Occupational Status:: retired Housing: house *Travel in the last 8 weeks: None - Psychiatric History Expresses thoughts of harming self/others: None Suicide Plan Description: No Plan Family Hx:: No significant family history Meds Home Medications Medication Instructions Recorded Confirmed Type Acetaminophen with Codeine 1 tab PO Q6H 10/30/18 10/30/18 History [Acetaminophen w/Codeine #3 Tablet] Allergies Allergy/AdvReac Type Severity Reaction Status Date / Time No Known Drug Intolerances Allergy Unknown NA Verified 10/22/18 11:02 Review of Systems - *Cardiovascular Denies chest pain, Denies fast heart rate - *Respiratory Reports shortness of breath with activity - *Gastrointestinal Reports abdominal pain, Reports vomiting blood - *Genitourinary Denies difficulty urinating, Denies blood in urine - *Musculoskeletal Reports joint pain, Reports back pain, Reports body aches - *Neurologic Reports weakness Exam Vital signs and Labs for Last 24 Hours: Temp Pulse Resp BP Pulse Ox 97.9 F 89 16 129/49 L 99 10/30/18 12:34 10/30/18 14:00 10/30/18 12:34 10/30/18 14:00 10/30/18 14:00 Laboratory Results - last 24 hr 10/30/18 12:45: WBC 13.8 H, RBC 3.73 L, Hgb 12.3 L, Hct 38.2 L, MCV 102.4 H, MCH 33.0 H, MCHC 32.2, RDW 18.4 H, Plt Count 644 H, MPV 7.7, Neut % (Auto) 88.9 H, Lymph % (Auto) 8.2 L, [place] % (Auto) 1.7, Eos % (Auto) 0.8, Baso % (Auto) 0.4, Neut # (Auto) 12.3 H, Lymph # (Auto) 1.1, [place] # (Auto) 0.2, Eos # (Auto) 0.1, Baso # (Auto) 0.1, Total Counted 100, Neutrophils % (Manual) 91 H, Band Neutrophils % 1.0, Lymphocytes % (Manual) 7 L, Monocytes % (Manual) 1 L, Platelet Estimate Moderate increase, Macrocytosis 2+ 10/30/18 12:45: PT 18.8 H, INR 1.86 H, APTT 32.4 10/30/18 12:45: Sodium 141, Potassium 3.6, Chloride 102, Carbon Dioxide 12 L, Anion Gap 30.6 H, BUN 21 H, Creatinine 2.91 H, Estimated Creat Clear 28, Estimated GFR 21 L, Est GFR ( Amer) 25 L, Glucose 130 H, Calcium 10.2 H, Total Bilirubin 0.5, AST 233 H, Alkaline Phosphatase 106, Troponin I 0.21 H, Total Protein 6.5, Albumin 2.8 L, Globulin 3.7 H, Albumin/Globulin Ratio 0.8 L, Acetaminophen 38.6 H, Plasma/Serum Alcohol 0 10/30/18 12:45: Lactate 2.5 H 10/30/18 12:45: Phosphorus 5.9 H, Magnesium 1.7 10/30/18 12:50: Stool Occult Blood Positive A I & O for Last 24 hours: Intake & Output 10/28/18 10/29/18 10/30/18 10/31/18 11:59 11:59 11:59 11:59 Weight 210 lb - *Routine HEENT Exam Head: Present: normocephalic Eye: Present: EOMI, PERRL ENT: Present: mucous membranes moist - *Routine Neck Exam Present: supple. Absent: JVD, carotid bruit - *Routine Respiratory Exam Present: CTA bilaterally. Absent: accessory muscle use, rales, rhonchi, wheezes - *Routine Cardiovascular Exam Present: RRR. Absent: murmur, gallop, rubs - *Routine Abdominal Exam Present: soft, tenderness. Absent: distended, guarding - *Routine Extremities Exam Absent: edema, calf tenderness - *Routine Neurological Exam Present: alert, oriented X3, moving all extremities Assessment and Plan (1) Acute renal failure Current visit: Yes Status: Acute Qualifiers: Acute renal failure type: unspecified Qualified Code(s): N17.9 - Acute kidney failure, unspecified Category: Medical Code(s): N17.9 - Acute kidney failure, unspecified (2) Elevated troponin Current visit: Yes Status: Acute Category: Medical Code(s): R74.8 - Abnormal levels of other serum enzymes (3) Upper GI bleed Current visit: Yes Status: Acute Category: Medical Code(s): K92.2 - Gastrointestinal hemorrhage, unspecified (4) Alcohol abuse Current visit: No Status: Acute Category: Medical Code(s): F10.10 - Alcohol abuse, uncomplicated (5) Anemia Current visit: No Status: Acute Category: Medical Code(s): D64.9 - Anemia, unspecified (6) Aortic valve sclerosis Current visit: Yes Status: Acute Category: Medical Code(s): I35.8 - Other nonrheumatic aortic valve disorders - Assessment and plan all Dx Assessment and Plan for all problems:: 1. Elevated troponin in setting of acute renal failure. Recent stress test this month showed normal LVEF with no evidence of coronary ischemia. It is felt the elevated troponin is insignificant in the setting of acute renal failure and would recommend following cardiac troponins as rehydration continues. Would not recommend further cardiac testing at this time. 2. OK from cardiology standpoint to proceed with evaluation of UGI bleed as indicated. 3. Will check acetaminophen and ibuprofen levels if available. 4. UGI bleed likely due to ETOH gastrititis exacerbated by ibuprofen use. 5. ARF likely secondary to acetaminophen use.
--- NOTE | 2018-10-30 15:10 | Consult Report ---
*Admission Date: 10/30/18 *Chief complaint: (Reason for consultation) hematemesis *History of present illness: This is a 77-year-old gentleman seen in consultation from the service of Dr. Robles after presenting with multiple complaints including recent hematemesis. Please see a forwarded copy of emergency department history and physical HPI below: (from ED evaluation) The patient is poor historian. History obtained from patient and brother. Patient was admitted here on 10/22/2018. Seen by me in this emergency department. He had a near syncopal episode and chest pain. Discharged from the hospital on Sunday 5 days ago. His brother says that "he started feeling bad again". He was supposed to see Dr. Robles in the office for follow-up yesterday afternoon, but said that he could not go because he felt too bad. He was also supposed to see Dr. Bower in the office this afternoon. However, stated he was feeling bad and therefore brother was going to bring him to the emergency room. On the way here he vomited in brother's truck and brother believes there was blood in it. The patient denies any bloody stools or melanotic stools. Denies abdominal pain. The patient says he hurts all over from his neuropathy, this is a chronic complaint. He has not been eating or drinking well. He has a history of daily alcohol consumption in the past. Initially said that he had some alcohol drink over the weekend, but is now denying it. Brother had noted on his previous emergency department visit that the patient takes daily ibuprofen and acetaminophen due to his chronic neuropathy pain. Review of Systems - ENT Denies bleeding gums - *Respiratory Denies cough - *Gastrointestinal Reports vomiting blood - *Neurologic Reports weakness [facility] History *Have you ever received a pneumonia vaccine?: No *Have you received a flu vaccine this season?: No Other Surgeries: Yes: Other Amputation: No Fractures: No - *Social History Educational Level: Completed High School Smoking Status: Unknown if ever smoked Alcohol Intake: former Alcohol Intake Frequency:: 0-2 drinks per day Substance Use Type: denies use *Occupational Status:: retired Housing: house *Travel in the last 8 weeks: None - Psychiatric History Expresses thoughts of harming self/others: None Suicide Plan Description: No Plan Family Hx:: No significant family history Meds Home Medications Medication Instructions Recorded Confirmed Type Acetaminophen with Codeine 1 tab PO Q6H 10/30/18 10/30/18 History [Acetaminophen w/Codeine #3 Tablet] Allergies Allergy/AdvReac Type Severity Reaction Status Date / Time No Known Drug Intolerances Allergy Unknown NA Verified 10/22/18 11:02 Exam Vital signs and Labs for Last 24 Hours: Temp Pulse Resp BP Pulse Ox 98.3 F 97 H 20 120/70 99 10/30/18 14:55 10/30/18 14:55 10/30/18 14:55 10/30/18 14:55 10/30/18 14:55 Laboratory Results - last 24 hr 10/30/18 12:45: WBC 13.8 H, RBC 3.73 L, Hgb 12.3 L, Hct 38.2 L, MCV 102.4 H, MCH 33.0 H, MCHC 32.2, RDW 18.4 H, Plt Count 644 H, MPV 7.7, Neut % (Auto) 88.9 H, Lymph % (Auto) 8.2 L, [place] % (Auto) 1.7, Eos % (Auto) 0.8, Baso % (Auto) 0.4, Neut # (Auto) 12.3 H, Lymph # (Auto) 1.1, [place] # (Auto) 0.2, Eos # (Auto) 0.1, Baso # (Auto) 0.1, Total Counted 100, Neutrophils % (Manual) 91 H, Band Neutrophils % 1.0, Lymphocytes % (Manual) 7 L, Monocytes % (Manual) 1 L, Platelet Estimate Moderate increase, Macrocytosis 2+ 10/30/18 12:45: PT 18.8 H, INR 1.86 H, APTT 32.4 10/30/18 12:45: Sodium 141, Potassium 3.6, Chloride 102, Carbon Dioxide 12 L, Anion Gap 30.6 H, BUN 21 H, Creatinine 2.91 H, Estimated Creat Clear 28, Estimated GFR 21 L, Est GFR ( Amer) 25 L, Glucose 130 H, Calcium 10.2 H, Total Bilirubin 0.5, AST 233 H, ALT 1601 H*, Alkaline Phosphatase 106, Troponin I 0.21 H, Total Protein 6.5, Albumin 2.8 L, Globulin 3.7 H, Albumin/Globulin Ratio 0.8 L, Acetaminophen 38.6 H, Plasma/Serum Alcohol 0 10/30/18 12:45: Lactate 2.5 H 10/30/18 12:45: Phosphorus 5.9 H, Magnesium 1.7 10/30/18 12:50: Stool Occult Blood Positive A I & O for Last 24 hours: Intake & Output 10/28/18 10/29/18 10/30/18 10/31/18 11:59 11:59 11:59 11:59 Intake Total 258 / 258 Balance 258 / 258 Weight 225 lb 8 oz - Constitutional no acute distress - *Routine Respiratory Exam Absent: respiratory distress - *Routine Cardiovascular Exam Present: RRR - *Routine Abdominal Exam Present: soft Results - Labs 10/30/18 12:45 10/30/18 12:45 Laboratory Results - last 24 hr 10/30/18 12:45: WBC 13.8 H, RBC 3.73 L, Hgb 12.3 L, Hct 38.2 L, MCV 102.4 H, MCH 33.0 H, MCHC 32.2, RDW 18.4 H, Plt Count 644 H, MPV 7.7, Neut % (Auto) 88.9 H, Lymph % (Auto) 8.2 L, [place] % (Auto) 1.7, Eos % (Auto) 0.8, Baso % (Auto) 0.4, Neut # (Auto) 12.3 H, Lymph # (Auto) 1.1, [place] # (Auto) 0.2, Eos # (Auto) 0.1, Baso # (Auto) 0.1, Total Counted 100, Neutrophils % (Manual) 91 H, Band Neutrophils % 1.0, Lymphocytes % (Manual) 7 L, Monocytes % (Manual) 1 L, Platelet Estimate Moderate increase, Macrocytosis 2+ 10/30/18 12:45: PT 18.8 H, INR 1.86 H, APTT 32.4 10/30/18 12:45: Sodium 141, Potassium 3.6, Chloride 102, Carbon Dioxide 12 L, Anion Gap 30.6 H, BUN 21 H, Creatinine 2.91 H, Estimated Creat Clear 28, Estimated GFR 21 L, Est GFR ( Amer) 25 L, Glucose 130 H, Calcium 10.2 H, Total Bilirubin 0.5, AST 233 H, ALT 1601 H*, Alkaline Phosphatase 106, Troponin I 0.21 H, Total Protein 6.5, Albumin 2.8 L, Globulin 3.7 H, Albumin/Globulin Ratio 0.8 L, Acetaminophen 38.6 H, Plasma/Serum Alcohol 0 10/30/18 12:45: Lactate 2.5 H 10/30/18 12:45: Phosphorus 5.9 H, Magnesium 1.7 10/30/18 12:50: Stool Occult Blood Positive A Assessment and Plan (1) Acute renal failure Current visit: Yes Status: Acute Qualifiers: Acute renal failure type: unspecified Qualified Code(s): N17.9 - Acute kidney failure, unspecified Category: Medical Code(s): N17.9 - Acute kidney failure, unspecified (2) Elevated troponin Current visit: Yes Status: Acute Category: Medical Code(s): R74.8 - Abnormal levels of other serum enzymes (3) Upper GI bleed Current visit: Yes Status: Acute Category: Medical Code(s): K92.2 - Gastrointestinal hemorrhage, unspecified Proton pump inhibitor Serial hemoglobin Likely esophagogastroduodenoscopy when cleared from a medical standpoint (unless needed urgently) (4) Alcohol abuse Current visit: No Status: Acute Category: Medical Code(s): F10.10 - Alcohol abuse, uncomplicated (5) Anemia Current visit: No Status: Acute Category: Medical Code(s): D64.9 - Anemia, unspecified (6) Aortic valve sclerosis Current visit: Yes Status: Acute Category: Medical Code(s): I35.8 - Other nonrheumatic aortic valve disorders
--- NOTE | 2018-10-31 06:54 | Progress Note ---
Subjective Patient reports: other (no change) Exam Vital signs and Labs for Last 24 Hours: Temp Pulse Resp BP Pulse Ox 98.3 F 83 18 94/43 L 96 10/31/18 04:00 10/31/18 04:00 10/31/18 04:00 10/31/18 04:00 10/31/18 04:00 Laboratory Results - last 24 hr 10/30/18 12:45: WBC 13.8 H, RBC 3.73 L, Hgb 12.3 L, Hct 38.2 L, MCV 102.4 H, MCH 33.0 H, MCHC 32.2, RDW 18.4 H, Plt Count 644 H, MPV 7.7, Neut % (Auto) 88.9 H, Lymph % (Auto) 8.2 L, [place] % (Auto) 1.7, Eos % (Auto) 0.8, Baso % (Auto) 0.4, Neut # (Auto) 12.3 H, Lymph # (Auto) 1.1, [place] # (Auto) 0.2, Eos # (Auto) 0.1, Baso # (Auto) 0.1, Total Counted 100, Neutrophils % (Manual) 91 H, Band Neutrophils % 1.0, Lymphocytes % (Manual) 7 L, Monocytes % (Manual) 1 L, Platelet Estimate Moderate increase, Macrocytosis 2+ 10/30/18 12:45: PT 18.8 H, INR 1.86 H, APTT 32.4 10/30/18 12:45: Sodium 141, Potassium 3.6, Chloride 102, Carbon Dioxide 12 L, Anion Gap 30.6 H, BUN 21 H, Creatinine 2.91 H, Estimated Creat Clear 28, Estimated GFR 21 L, Est GFR ( Amer) 25 L, Glucose 130 H, Calcium 10.2 H, Total Bilirubin 0.5, AST 233 H, ALT 1601 H*, Alkaline Phosphatase 106, Troponin I 0.21 H, Total Protein 6.5, Albumin 2.8 L, Globulin 3.7 H, Albumin/Globulin Ratio 0.8 L, Acetaminophen 38.6 H, Plasma/Serum Alcohol 0 10/30/18 12:45: Lactate 2.5 H 10/30/18 12:45: Phosphorus 5.9 H, Magnesium 1.7 10/30/18 12:50: Stool Occult Blood Positive A 10/30/18 16:50: Troponin I 0.21 H 10/30/18 17:20: Lactate 1.3 10/30/18 20:15: Troponin I 0.21 H I & O for Last 24 hours: Intake & Output 10/28/18 10/29/18 10/30/18 10/31/18 11:59 11:59 11:59 11:59 Intake Total 1084 / 1084 Balance 1084 / 1084 Weight 229 lb 6 oz - Constitutional no acute distress Comments: no verbal response - *Routine Respiratory Exam Absent: respiratory distress - *Routine Cardiovascular Exam Present: RRR - *Routine Abdominal Exam Present: soft Progress Note: A&P (1) Acute renal failure Status: Acute Current Visit: Yes (2) Elevated troponin Status: Acute Current Visit: Yes (3) Upper GI bleed Status: Acute Assessment and plan: continue PPI NPO now plan EGD later today (cleared by Cards for endoscopy) Current Visit: Yes (4) Alcohol abuse Status: Acute Current Visit: No (5) Anemia Status: Acute Current Visit: No (6) Aortic valve sclerosis Status: Acute Current Visit: Yes
--- NOTE | 2018-10-31 07:25 | Pharmacy Consult Notes ---
[facility] Pharmacy VTE Monitoring - Patient Demographics Admission date: 10/30/18 Report Date: 10/31/18 Time: 07:25 Allergies/Adverse Reactions: Patient Allergies No Known Drug Intolerances Allergy (Unknown, Verified 10/22/18 11:02) NA Height: 1.75 m Weight: 104.043 kg Patient Problems: Current Active Problems (Updated 10/30/18 @ 14:42 by DUTCH Hauser) Acute renal failure (Acute) Upper GI bleed (Acute) Elevated troponin (Acute) Aortic valve sclerosis (Acute) - VTE Risk Labs: VTE Related Lab Results Hgb 12.3 g/dL (14.1-18.0) L 10/30/18 12:45 Hct 38.2 % (42.0-52.0) L 10/30/18 12:45 Plt Count 644 K/mm3 (142-424) H 10/30/18 12:45 PT 18.8 seconds (9.4-11.8) H 10/30/18 12:45 INR 1.86 (0.9-1.1) H 10/30/18 12:45 APTT 32.4 seconds (23.6-34.0) 10/30/18 12:45 BUN 21 mg/dL (7-18) H 10/30/18 12:45 Creatinine 2.91 mg/dL (0.70-1.30) H 10/30/18 12:45 Estimated Creat Clear 28 mL/min (50-200) 10/30/18 12:45 - Prophylaxis VTE Prophylaxis Ordered?: Yes Types of VTE Prophylaxis: TEDS Knee High Location of Applied Device: Bilateral Lower Extremeties - VTE Diagnosis Confirmed Treatment or plan recommended: Continue Current Treatment
[2018-10-31 07:32] LABS: Basophils % 0.4 % (0.1-2.0); Eosinophils # 0.3 K/mm3 (0.0-0.4); Eosinophils % 2.8 % (0.1-12.0); Hematocrit 35.6 % (42.0-52.0); Hemoglobin 11.1 g/dL (14.1-18.0); Lymphocytes # 1.4 K/mm3 (0.7-4.5); Lymphocytes % 11.8 % (10-50); Mean Corpuscular HGB Conc 31.2 g/dL (31.8-35.4); Mean Corpuscular Hemoglobin 32.8 pg (27.0-31.2); Mean Corpuscular Volume 105.2 fl (80-94); Mean Platelet Volume 8.1 fl (7.4-10.4); Monocytes # 0.2 K/mm3 (0.1-1.0); Monocytes % 2.1 % (1.7-9.3); Neutrophils # 9.5 K/mm3 (1.8-7.8); Neutrophils % 82.9 % (37.0-80.0); Platelet Count 479 K/mm3 (142-424); Red Blood Count 3.39 M/mm3 (4.60-6.20); Red Cell Distribution Width 18.7 % (11.5-17.5); White Blood Count 11.4 K/mm3 (4.8-10.8)
--- NOTE | 2018-10-31 07:40 | Progress Note ---
Subjective Date: 10/31/18 Time: 07:36 Interval history: 77-year-old white male in bed sleeping initially in no acute distress. Patient awakened but does not answer questions only moans and goes back to sleep. Exam Vital signs and Labs for Last 24 Hours: Temp Pulse Resp BP Pulse Ox 98.3 F 83 18 94/43 L 96 10/31/18 04:00 10/31/18 04:00 10/31/18 04:00 10/31/18 04:00 10/31/18 04:00 Laboratory Results - last 24 hr 10/30/18 12:45: WBC 13.8 H, RBC 3.73 L, Hgb 12.3 L, Hct 38.2 L, MCV 102.4 H, MCH 33.0 H, MCHC 32.2, RDW 18.4 H, Plt Count 644 H, MPV 7.7, Neut % (Auto) 88.9 H, Lymph % (Auto) 8.2 L, [place] % (Auto) 1.7, Eos % (Auto) 0.8, Baso % (Auto) 0.4, Neut # (Auto) 12.3 H, Lymph # (Auto) 1.1, [place] # (Auto) 0.2, Eos # (Auto) 0.1, Baso # (Auto) 0.1, Total Counted 100, Neutrophils % (Manual) 91 H, Band Neutrophils % 1.0, Lymphocytes % (Manual) 7 L, Monocytes % (Manual) 1 L, P latelet Estimate Moderate increase, Macrocytosis 2+ 10/30/18 12:45: PT 18.8 H, INR 1.86 H, APTT 32.4 10/30/18 12:45: Sodium 141, Potassium 3.6, Chloride 102, Carbon Dioxide 12 L, Anion Gap 30.6 H, BUN 21 H, Creatinine 2.91 H, Estimated Creat Clear 28, Estimated GFR 21 L, Est GFR ( Amer) 25 L, Glucose 130 H, Calcium 10.2 H, Total Bilirubin 0.5, AST 233 H, ALT 1601 H*, Alkaline Phosphatase 106, Troponin I 0.21 H, Total Protein 6.5, Albumin 2.8 L, Globulin 3.7 H, Albumin/Globulin Ratio 0.8 L, Acetaminophen 38.6 H, Plasma/Serum Alcohol 0 10/30/18 12:45: Lactate 2.5 H 10/30/18 12:45: Phosphorus 5.9 H, Magnesium 1.7 10/30/18 12:50: Stool Occult Blood Positive A 10/30/18 16:50: Troponin I 0.21 H 10/30/18 17:20: Lactate 1.3 10/30/18 20:15: Troponin I 0.21 H 10/31/18 06:04: WBC 11.4 H, RBC 3.39 L, Hgb 11.1 L, Hct 35.6 L, MCV 105.2 H, MCH 32.8 H, MCHC 31.2 L, RDW 18.7 H, Plt Count 479 H D, MPV 8.1, Neut % (Auto) 82.9 H, Lymph % (Auto) 11.8, [place] % (Auto) 2.1, Eos % (Auto) 2.8, Baso % (Auto) 0.4, Neut # (Auto) 9.5 H, Lymph # (Auto) 1.4, [place] # (Auto) 0.2, Eos # (Auto) 0.3, Baso # (Auto) 0.0 I & O for Last 24 hours: Intake & Output 10/28/18 10/29/18 10/30/18 10/31/18 11:59 11:59 11:59 11:59 Intake Total 1084 / 1084 Balance 1084 / 1084 Weight 229 lb 6 oz - *Routine Respiratory Exam Present: CTA bilaterally. Absent: accessory muscle use, rales, rhonchi, wheezes - *Routine Cardiovascular Exam Present: RRR. Absent: murmur, gallop, rubs - *Routine Extremities Exam Absent: edema, calf tenderness Progress Note: A&P (1) Acute renal failure Status: Acute Current Visit: Yes (2) Elevated troponin Status: Acute Current Visit: Yes (3) Upper GI bleed Status: Acute Current Visit: Yes (4) Alcohol abuse Status: Acute Current Visit: No (5) Anemia Status: Acute Current Visit: No (6) Aortic valve sclerosis Status: Acute Current Visit: Yes Assessment and Plan for All Diagnoses:: 1. Labs from this a.m. are pending. Acetaminophen level elevated. Ibuprofen levels pending. 2. Troponins remained elevated at 0.21 X 3 due to acute renal failure. Would not pursue further cardiac testing at this time. 3. Cleared from cardiology standpoint for endoscopy if recommended.
[2018-10-31 07:42] LABS: Anion Gap 28.9 mEq/L (5-15); Potassium 3.9 mmoL/L (3.5-5.1)
[2018-10-31 07:44] LABS: INR 1.7 (0.9-1.1); Prothrombin Time 17.2 seconds (9.4-11.8)
[2018-10-31 07:45] LABS: Bilirubin,Direct 0.2 mg/dL (0.0-0.2); Bilirubin,Indirect 0.2 mg/dL (0.0-0.9); Bilirubin,Total 0.4 mg/dL (0.2-1.0); Total Protein,Serum 5.9 gm/dL (6.4-8.2)
[2018-10-31 07:46] LABS: Albumin Level 2.4 gm/dL (3.4-5.0)
[2018-10-31 08:07] LABS: Calcium 8.8 mg/dL (8.5-10.1)
--- NOTE | 2018-10-31 10:13 | Discharge Summary ---
General - General Admission date:: 10/30/18 Discharge date: 10/31/18 HPI HPI: The patient is poor historian. History obtained from patient and brother. Patient was admitted here on 10/22/2018. Seen by me in this emergency department. He had a near syncopal episode and chest pain. Discharged from the hospital on Sunday 5 days ago. His brother says that "he started feeling bad again". He was supposed to see Dr. Robles in the office for follow-up yesterday afternoon, but said that he could not go because he felt too bad. He was also supposed to see Dr. Bower in the office this afternoon. However, stated he was feeling bad and therefore brother was going to bring him to the emergency room. On the way here he vomited in brother's truck and brother believes there was blood in it. The patient denies any bloody stools or melanotic stools. Denies abdominal pain. The patient says he hurts all over from his neuropathy, this is a chronic complaint. He has not been eating or drinking well. He has a history of daily alcohol consumption in the past. Initially said that he had some alcohol drink over the weekend, but is now denying it. Brother had noted on his previous emergency department visit that the patient takes daily ibuprofen and acetaminophen due to his chronic neuropathy pain. The above per Dr. Bhakta Cardiology consulted for elevated troponin. Pt is poor historian as noted above. Complains that he hurts all over. EKG is sinus with LVH by voltage. No acute changes noted.-per [facility] Course Hospital Course: ct head- neg ct abd/pel- neg chest x ray neg This a.m. patient has altered mental status liver enzymes have improved but still elevated. Creatinine is 2.9 which is elevated from yesterday. Stool was positive for blood. Cardiology consult for elevated troponins which they believe is due to acute renal failure. Tylenol level was 38.6. Alcohol level was 0. Transfer to [facility] to Dr. Gibbs with wordfod except for surgery. Patient will be transferred to the ICU. Patient was being transferred due to liver and kidney failure acutely. Objective Vital signs: Temp Pulse Resp BP Pulse Ox 97.7 F 90 20 153/67 H 99 10/31/18 08:00 10/31/18 08:00 10/31/18 08:00 10/31/18 08:00 10/31/18 08:00 mild distress - *Routine HEENT Exam Head: Present: normocephalic Eye: Present: PERRL ENT: Present: mucous membranes moist - *Routine Respiratory Exam Present: CTA bilaterally - *Routine Cardiovascular Exam Present: RRR - *Routine Abdominal Exam Present: soft, normoactive bowel sounds. Absent: tenderness - *Routine Extremities Exam Present: full ROM - Routine Back/Spine/Pelvis Exam Back/Spine: Present: full ROM - *Routine Skin Exam Present: intact - *Routine Neurological Exam Present: alert, altered mental status, moving all extremities - Routine Psychiatric Exam Present: normal affect Results Labs on day of discharge: Labs from last 24 hours 10/31/18 10/31/18 10/31/18 09:10 09:10 07:24 WBC RBC Hgb Hct MCV MCH MCHC RDW Plt Count MPV Neut % (Auto) Lymph % (Auto) [place] % (Auto) Eos % (Auto) Baso % (Auto) Neut # (Auto) Lymph # (Auto) [place] # (Auto) Eos # (Auto) Baso # (Auto) Total Counted Neutrophils % (Manual) Band Neutrophils % Lymphocytes % (Manual) Monocytes % (Manual) Platelet Estimate Macrocytosis PT 17.2 H INR 1.70 H APTT Sodium Potassium Chloride Carbon Dioxide Anion Gap BUN Creatinine Estimated Creat Clear Estimated GFR Est GFR ( Amer) Glucose Lactate Calcium Phosphorus Magnesium 1.7 Total Bilirubin Direct Bilirubin Indirect Bilirubin AST ALT Alkaline Phosphatase Ammonia 87 H Troponin I Total Protein Albumin Globulin Albumin/Globulin Ratio Stool Occult Blood Acetaminophen Plasma/Serum Alcohol 10/31/18 10/31/18 10/31/18 06:04 06:04 06:04 WBC 11.4 H RBC 3.39 L Hgb 11.1 L Hct 35.6 L MCV 105.2 H MCH 32.8 H MCHC 31.2 L RDW 18.7 H Plt Count 479 H D MPV 8.1 Neut % (Auto) 82.9 H Lymph % (Auto) 11.8 [place] % (Auto) 2.1 Eos % (Auto) 2.8 Baso % (Auto) 0.4 Neut # (Auto) 9.5 H Lymph # (Auto) 1.4 [place] # (Auto) 0.2 Eos # (Auto) 0.3 Baso # (Auto) 0.0 Total Counted Neutrophils % (Manual) Band Neutrophils % Lymphocytes % (Manual) Monocytes % (Manual) Platelet Estimate Macrocytosis PT INR APTT Sodium 147 H Potassium 3.9 Chloride 110 H Carbon Dioxide 12 L Anion Gap 28.9 H BUN 32 H D Creatinine 2.99 H Estimated Creat Clear 29 Estimated GFR 20 L Est GFR ( Amer) 25 L Glucose 110 H Lactate Calcium 8.8 D Phosphorus Magnesium Total Bilirubin 0.4 Direct Bilirubin 0.2 Indirect Bilirubin 0.2 AST 77 H D ALT 981 H* Alkaline Phosphatase 93 Ammonia Troponin I Total Protein 5.9 L Albumin 2.4 L D Globulin Albumin/Globulin Ratio Stool Occult Blood Acetaminophen Plasma/Serum Alcohol 10/30/18 10/30/18 10/30/18 20:15 17:20 16:50 WBC RBC Hgb Hct MCV MCH MCHC RDW Plt Count MPV Neut % (Auto) Lymph % (Auto) [place] % (Auto) Eos % (Auto) Baso % (Auto) Neut # (Auto) Lymph # (Auto) [place] # (Auto) Eos # (Auto) Baso # (Auto) Total Counted Neutrophils % (Manual) Band Neutrophils % Lymphocytes % (Manual) Monocytes % (Manual) Platelet Estimate Macrocytosis PT INR APTT Sodium Potassium Chloride Carbon Dioxide Anion Gap BUN Creatinine Estimated Creat Clear Estimated GFR Est GFR ( Amer) Glucose Lactate 1.3 Calcium Phosphorus Magnesium Total Bilirubin Direct Bilirubin Indirect Bilirubin AST ALT Alkaline Phosphatase Ammonia Troponin I 0.21 H 0.21 H Total Protein Albumin Globulin Albumin/Globulin Ratio Stool Occult Blood Acetaminophen Plasma/Serum Alcohol 10/30/18 10/30/18 10/30/18 12:50 12:45 12:45 WBC RBC Hgb Hct MCV MCH MCHC RDW Plt Count MPV Neut % (Auto) Lymph % (Auto) [place] % (Auto) Eos % (Auto) Baso % (Auto) Neut # (Auto) Lymph # (Auto) [place] # (Auto) Eos # (Auto) Baso # (Auto) Total Counted Neutrophils % (Manual) Band Neutrophils % Lymphocytes % (Manual) Monocytes % (Manual) Platelet Estimate Macrocytosis PT INR APTT Sodium Potassium Chloride Carbon Dioxide Anion Gap BUN Creatinine Estimated Creat Clear Estimated GFR Est GFR ( Amer) Glucose Lactate 2.5 H Calcium Phosphorus 5.9 H Magnesium 1.7 Total Bilirubin Direct Bilirubin Indirect Bilirubin AST ALT Alkaline Phosphatase Ammonia Troponin I Total Protein Albumin Globulin Albumin/Globulin Ratio Stool Occult Blood Positive A Acetaminophen Plasma/Serum Alcohol 10/30/18 10/30/18 10/30/18 12:45 12:45 12:45 WBC 13.8 H RBC 3.73 L Hgb 12.3 L Hct 38.2 L MCV 102.4 H MCH 33.0 H MCHC 32.2 RDW 18.4 H Plt Count 644 H MPV 7.7 Neut % (Auto) 88.9 H Lymph % (Auto) 8.2 L [place] % (Auto) 1.7 Eos % (Auto) 0.8 Baso % (Auto) 0.4 Neut # (Auto) 12.3 H Lymph # (Auto) 1.1 [place] # (Auto) 0.2 Eos # (Auto) 0.1 Baso # (Auto) 0.1 Total Counted 100 Neutrophils % (Manual) 91 H Band Neutrophils % 1.0 Lymphocytes % (Manual) 7 L Monocytes % (Manual) 1 L Platelet Estimate Moderate increase Macrocytosis 2+ PT 18.8 H INR 1.86 H APTT 32.4 Sodium 141 Potassium 3.6 Chloride 102 Carbon Dioxide 12 L Anion Gap 30.6 H BUN 21 H Creatinine 2.91 H Estimated Creat Clear 28 Estimated GFR 21 L Est GFR ( Amer) 25 L Glucose 130 H Lactate Calcium 10.2 H Phosphorus Magnesium Total Bilirubin 0.5 Direct Bilirubin Indirect Bilirubin AST 233 H ALT 1601 H* Alkaline Phosphatase 106 Ammonia Troponin I 0.21 H Total Protein 6.5 Albumin 2.8 L Globulin 3.7 H Albumin/Globulin Ratio 0.8 L Stool Occult Blood Acetaminophen 38.6 H Plasma/Serum Alcohol 0 - Additional Comments Rounded with Dr. Robles all orders per Margaret DS: Diagnosis - Discharge Diagnosis (1) Acute renal failure Status: Acute (2) Elevated troponin Status: Acute (3) Upper GI bleed Status: Acute (4) Alcohol abuse Status: Acute (5) Anemia Status: Acute (6) Aortic valve sclerosis Status: Acute Discharge Plan - Patient Discharge Instructions ACTIVITY: Continue current activity DIET: continue same diet - Follow up Plan Follow up with: Jackson Robles MD [Primary Care Provider] - Disposition: Xfer Short-Term Hosp Home Medications: Home Medications Medication Instructions Recorded Confirmed Type Acetaminophen [Acetaminophen 325mg 650 mg PO Q4HP PRN 10/30/18 10/30/18 History tab] Ibuprofen [Ibuprofen 200MG Capsule] 200 mg PO Q6HP PRN 10/30/18 10/30/18 History Prescriptions/Medication Reconciliation: Continued Acetaminophen [Acetaminophen 325mg tab] 650 mg PO Q4HP PRN PRN Reason: pain Ibuprofen [Ibuprofen 200MG Capsule] 200 mg PO Q6HP PRN PRN Reason: pain
== END 2018-10-31 12:11 | disposition short-term general hospital (02) | DRG 683 ==
LOC: ER 12:31 → 2ND 13:39
PROVIDERS: ADMIT Emergency Medicine; ATTEND Emergency Medicine
CPT/HCPCS: 36415; 70450; 71010; 71045; 74176; 80048; 80053; 80076; 80329; 82140; 82272; 82962; 83605; 83735; 84100; 84484; 85007; 85025; 85610; 85730; 87040; 93005; 96365; 96375; 96376; 99284; G0328; J2405